=== PATIENT | female | born 1940 | race Caucasian/White ===

== ENCOUNTER 2017-08-31 21:13 | Inpatient (IN) | payer MEDICARE, MEDICAID ==
[~2017-08-31] VITALS: Ht 167.6 cm; Wt 47.2 kg
[~2017-08-31 21:13] MED LIST: ASPI-1264 PO; ATE25T PO; CLOP75TA35 PO; DIGO250T PO; LEVO50TA67 PO; LISI-222 PO; LOPE-144 PO; ONDA4TAB12 PO; SIMV20TA5 PO; temazepam 15mg capsule PO PRN
[2017-08-31] MEDS ORDERED: normal saline 1000ml 1,000 ML IV ONE (21:27)
[2017-08-31] MEDS ORDERED: pantoprazole 40 MG vial IV ONE (21:30)
[2017-08-31 21:50] LABS: BASOPHILS % (AUTO) 0.4 % (0-1); EOSINOPHILS # (AUTO) 0.2 X10'3 (0-0.9); EOSINOPHILS % (AUTO) 2.3 % (0-6); HEMATOCRIT 35.9 % (35.0-45.0); LYMPHOCYTES # (AUTO) 4.7 X10'3 (1.1-4.8); LYMPHOCYTES % (AUTO) 56.6 % (21-51); MEAN CORPUSCULAR HEMOGLOBIN 31.1 PG (27.0-31.0); MEAN CORPUSCULAR HGB CONC 33.5 % (33.0-36.5); MEAN CORPUSCULAR VOLUME 92.9 FL (78-98); MEAN PLATELET VOLUME 7.4 FL (7.4-10.4); MONOCYTES # (AUTO) 0.5 X10'3 (0-0.9); MONOCYTES % (AUTO) 6.3 % (2-12); NEUTROPHILS # (AUTO) 2.9 X10'3 (1.8-7.7); NEUTROPHILS % (AUTO) 34.4 % (42-75); PLATELET COUNT 299 X10'3 (140-440); RED BLOOD COUNT 3.87 X10'6 (4.20-5.60); RED CELL DISTRIBUTION WIDTH 13.9 % (11.5-14.5); WHITE BLOOD COUNT 8.4 X10'3 (4.5-11.0)
[2017-08-31] MEDS ORDERED: VALE530C (21:56)
[2017-08-31] MEDS ORDERED: LEVO112T5 PO (21:56)
[2017-08-31] MEDS ORDERED: FISH12002 PO (21:56)
[2017-08-31] MEDS ORDERED: DICY10CA88 PO (21:56)
[2017-08-31 22:03] LABS: PARTIAL THROMBOPLASTIN TIME 21 SECONDS (22-32); PROTHROMBIN TIME 10.4 SECONDS (9.0-12.0)
[2017-08-31 22:13] LABS: ALANINE AMINOTRANSFERASE 26 U/L (12-78); ALBUMIN 3.2 G/DL (3.4-5.0); ALBUMIN/GLOBULIN RATIO 1.1 (1.1-1.5); ALKALINE PHOSPHATASE 40 IU/L (46-116); ANION GAP 12 (8-16); ASPARTATE AMINO TRANSFERASE 21 U/L (10-37); BILIRUBIN,TOTAL 0.3 MG/DL (0.1-1.0); BLOOD UREA NITROGEN 14 MG/DL (7-18); BUN/CREATININE RATIO 19.2 (6.6-38.0); CALCIUM 7.9 MG/DL (8.5-10.1); CHLORIDE 104 MMOL/L (99-107); CREATININE 0.73 MG/DL (0.40-0.90); ETHANOL 0.038 GM/DL (0.0-0.010); GLUCOSE 96 MG/DL (70-104); LIPASE 193 U/L (73-393); SODIUM 142 MMOL/L (135-145); TOTAL CARBON DIOXIDE 26.3 MMOL/L (24-32); eGFR 77 ML/MIN
[2017-08-31] MEDS: normal saline 1000ml 1,000 ML IV SCH (23:02)
[2017-08-31] MEDS ORDERED: morphine 4 MG/ML inj SYRINge IV PRN ×2 (23:05)
[2017-08-31] MEDS ORDERED: magnesium 4gm in 100ml NS 100 ML IV PRN (23:05)
[2017-08-31] MEDS ORDERED: potassium Cl 20 mEq SR tablet PO PRN ×2 (23:05)
[2017-08-31] MEDS ORDERED: ondansetron/PF 4mg/2ml inj IV PRN (23:05)
[2017-08-31] MEDS ORDERED: magnesium hydroxide 30ml (MOM) UD suspension PO PRN (23:05)
[2017-08-31] MEDS ORDERED: mag hydrox/Alum hydrox/simeth 30ml oral suspension PO PRN (23:05)
[2017-08-31] MEDS ORDERED: magnesium Cl slow-release 64mg tablet PO PRN (23:05)
[2017-08-31] MEDS ORDERED: magnesium 2GM in 50ml NS 50 ML IV PRN (23:05)
[2017-08-31] MEDS ORDERED: albuterol 2.5 MG/3 ML nebule NEB PRN (23:05)
[2017-08-31] MEDS ORDERED: potassium Cl 40MEQ/NS 500ml 500 ML IV PRN ×2 (23:05)
[2017-08-31] MEDS ORDERED: acetaminophen 325mg tablet PO PRN (23:05)
[2017-08-31] MEDS ORDERED: ipratropium/albuterol 3ml nebule NEB PRN (23:05)
[2017-08-31 23:53] LABS: CLARITY,URINE CLEAR (Clear); COLOR,URINE STRAW (Yellow); GLUCOSE, URINE NEGATIVE (Neg); KETONES,URINE NEGATIVE (Neg); LEUKOCYTE ESTERASE ,URINE NEGATIVE (Neg); NITRITES, URINE NEGATIVE (Neg); OCCULT BLOOD,URINE LARGE (Neg); PH,URINE 5.5 (4.8-8.0); PROTEIN,URINE NEGATIVE (Neg); UROBILINOGEN,URINE 0.2 E.U/dL (0.2-1.0)
[2017-08-31 23:57] LABS: UA COLLECTION TYPE URINAL
[2017-09-01 00:56] LABS: BACTERIA,URINE 2+ /HPF (Neg); MUCUS STRANDS NONE SEEN /LPF (Neg); RBC,URINE 0-2 /HPF (0-2); SQUAMOUS EPITHELIAL CELL,UR FEW /LPF (FEW); WBC,URINE NONE SEEN /HPF (0-4)
[2017-09-01] MEDS: pantoprazole 40MG/NS 100ML BAG 100 ML IV SCH ×3 (01:22→14:38)
[2017-09-01 03:28] LABS: BASOPHILS % (AUTO) 0.4 % (0-1); EOSINOPHILS # (AUTO) 0.1 X10'3 (0-0.9); EOSINOPHILS % (AUTO) 1.1 % (0-6); HEMATOCRIT 36.7 % (35.0-45.0); HEMOGLOBIN 12.4 g/dl (12.0-16.0); LYMPHOCYTES # (AUTO) 1.9 X10'3 (1.1-4.8); LYMPHOCYTES % (AUTO) 25.1 % (21-51); MEAN CORPUSCULAR HEMOGLOBIN 31.2 PG (27.0-31.0); MEAN CORPUSCULAR HGB CONC 33.9 % (33.0-36.5); MEAN PLATELET VOLUME 7.2 FL (7.4-10.4); MONOCYTES # (AUTO) 0.4 X10'3 (0-0.9); MONOCYTES % (AUTO) 5.2 % (2-12); NEUTROPHILS # (AUTO) 5.3 X10'3 (1.8-7.7); NEUTROPHILS % (AUTO) 68.2 % (42-75); PLATELET COUNT 301 X10'3 (140-440); RED BLOOD COUNT 3.99 X10'6 (4.20-5.60); RED CELL DISTRIBUTION WIDTH 13.8 % (11.5-14.5); WHITE BLOOD COUNT 7.7 X10'3 (4.5-11.0)
[2017-09-01 03:46] LABS: ALANINE AMINOTRANSFERASE 28 U/L (12-78); ALBUMIN 3.4 G/DL (3.4-5.0); ALBUMIN/GLOBULIN RATIO 1.2 (1.1-1.5); ALKALINE PHOSPHATASE 40 IU/L (46-116); ANION GAP 9 (8-16); ASPARTATE AMINO TRANSFERASE 21 U/L (10-37); BILIRUBIN,TOTAL 0.4 MG/DL (0.1-1.0); BLOOD UREA NITROGEN 17 MG/DL (7-18); BUN/CREATININE RATIO 23.6 (6.6-38.0); CALCIUM 8.3 MG/DL (8.5-10.1); CHLORIDE 107 MMOL/L (99-107); CREATININE 0.72 MG/DL (0.40-0.90); GLUCOSE 115 MG/DL (70-104); POTASSIUM 4.7 MMOL/L (3.5-5.1); SODIUM 141 MMOL/L (135-145); TOTAL CARBON DIOXIDE 25.4 MMOL/L (24-32); TOTAL PROTEIN 6.2 G/DL (6.4-8.2); eGFR 78 ML/MIN
[2017-09-01 06:55] VITALS: BP 120/45
[2017-09-01] MEDS ORDERED: heparin sodium, porcine/PF 100unit/ml 5ML syringe ONE (07:58)
[2017-09-01] MEDS: K and/or MAG REPLACEMENT MC SCH (08:00)
[2017-09-01] MEDS: normal saline 1000ml 1,000 ML IV SCH ×2 (08:04→20:00)
[2017-09-01 11:00] VITALS: BP 124/58
[2017-09-01] MEDS ORDERED: LISI-642 PO (11:11)
[2017-09-01] MEDS ORDERED: PEG 3350/Na sulf,bicarb,Cl/KCl oral sol 4 liter bottle PO ONE (12:35)
[2017-09-01 19:30] VITALS: BP 169/75
[2017-09-01] MEDS: atenolol 50mg tablet PO SCH (19:59)
[2017-09-01] MEDS: pantoprazole 40 MG vial IV SCH (19:59)
[2017-09-02] VITALS (8 sets, daily range): BP systolic 124–162; BP diastolic 55–94
[2017-09-02 05:18] LABS: BASOPHILS % (AUTO) 0.7 % (0-1); EOSINOPHILS # (AUTO) 0.2 X10'3 (0-0.9); HEMATOCRIT 30.3 % (35.0-45.0); HEMOGLOBIN 10.3 g/dl (12.0-16.0); LYMPHOCYTES # (AUTO) 2.2 X10'3 (1.1-4.8); LYMPHOCYTES % (AUTO) 37.7 % (21-51); MEAN CORPUSCULAR HEMOGLOBIN 31.3 PG (27.0-31.0); MEAN CORPUSCULAR HGB CONC 34.1 % (33.0-36.5); MEAN CORPUSCULAR VOLUME 91.9 FL (78-98); MEAN PLATELET VOLUME 7.6 FL (7.4-10.4); MONOCYTES # (AUTO) 0.5 X10'3 (0-0.9); MONOCYTES % (AUTO) 8.4 % (2-12); NEUTROPHILS % (AUTO) 50.2 % (42-75); PLATELET COUNT 248 X10'3 (140-440); RED BLOOD COUNT 3.29 X10'6 (4.20-5.60); RED CELL DISTRIBUTION WIDTH 13.6 % (11.5-14.5); WHITE BLOOD COUNT 5.9 X10'3 (4.5-11.0)
[2017-09-02 05:37] LABS: ALANINE AMINOTRANSFERASE 19 U/L (12-78); ALBUMIN 2.7 G/DL (3.4-5.0); ALBUMIN/GLOBULIN RATIO 1.1 (1.1-1.5); ALKALINE PHOSPHATASE 31 IU/L (46-116); ANION GAP 7 (8-16); ASPARTATE AMINO TRANSFERASE 19 U/L (10-37); BILIRUBIN,TOTAL 0.5 MG/DL (0.1-1.0); BLOOD UREA NITROGEN 6 MG/DL (7-18); CALCIUM 7.7 MG/DL (8.5-10.1); CHLORIDE 114 MMOL/L (99-107); GLUCOSE 89 MG/DL (70-104); MAGNESIUM 1.7 MG/DL (1.5-2.4); POTASSIUM 3.8 MMOL/L (3.5-5.1); SODIUM 147 MMOL/L (135-145); TOTAL CARBON DIOXIDE 26.4 MMOL/L (24-32); TOTAL PROTEIN 5.1 G/DL (6.4-8.2); eGFR > 90 ML/MIN
[2017-09-02] MEDS ORDERED: fentaNYL/PF 50MCG/1 ML 2ML syringe ONE (06:37)
[2017-09-02] MEDS ORDERED: MIDAZolam 5mg/ml 2ml vial ONE (06:37)
[2017-09-02] MEDS ORDERED: levoTHYROXINE 112mcg tablet PO SCH (07:00)
[2017-09-02] MEDS: K and/or MAG REPLACEMENT MC SCH (08:00)
[2017-09-02] MEDS: pantoprazole 40 MG vial IV SCH (10:56)
[2017-09-02] MEDS: atenolol 50mg tablet PO SCH (10:56)
== END 2017-09-02 16:20 | disposition home or self-care (01) | DRG 378 ==
LOC: ER 21:13 → ED HOLD 23:02 → SUR 3N 09-01 00:56
PROVIDERS: ADMIT Internal Medicine; ATTEND Internal Medicine
PROC: CD171ZZ Planar Nuclear Medicine Imaging of Gastrointestinal Tract using Technetium 99m (Tc-99m) (ICD-10-PCS; 2017-09-01)
PROC: 0W3P8ZZ Control Bleeding in Gastrointestinal Tract, Via Natural or Artificial Opening Endoscopic (ICD-10-PCS; principal; 2017-09-02)
DX: K92.1 Melena (principal); K63.3 Ulcer of intestine; I48.2 Chronic atrial fibrillation; I50.9 Heart failure, unspecified; I11.0 Hypertensive heart disease with heart failure; R71.0 Precipitous drop in hematocrit; J44.9 Chronic obstructive pulmonary disease, unspecified; K57.90 Diverticulosis of intestine, part unspecified, without perforation or abscess without bleeding; K58.9 Irritable bowel syndrome, unspecified; F10.129 Alcohol abuse with intoxication, unspecified; E78.5 Hyperlipidemia, unspecified; E03.9 Hypothyroidism, unspecified; E78.00 Pure hypercholesterolemia, unspecified; K21.9 Gastro-esophageal reflux disease without esophagitis; Z60.2 Problems related to living alone; Z90.49 Acquired absence of other specified parts of digestive tract; Z88.6 Allergy status to analgesic agent; Z91.018 Allergy to other foods; Z79.02 Long term (current) use of antithrombotics/antiplatelets; Z79.899 Other long term (current) drug therapy; Z86.73 Personal history of transient ischemic attack (TIA), and cerebral infarction without residual deficits; Z87.891 Personal history of nicotine dependence
CPT/HCPCS: 36415; 45378; 45382; 78278; 80053; 80162; 80320; 81001; 83690; 83735; 84484; 85025; 85610; 85730; 86885; 86900; 86901; 86920; 87070; 93005; 94760; 96361; 96374; 99285; A4620; A6258; A9560; C9113; G0500; J1642; J2250; J3010; J7030

== ENCOUNTER 2021-01-08 06:29 | Emergency (ER) | payer MEDICARE, MEDICAID ==
[~2021-01-08] VITALS: Ht 175.3 cm; Wt 48.6 kg
[~2021-01-08 06:29] MED LIST changes: -ASPI-1264 PO; +CLOP75TA34 PO; -CLOP75TA35 PO; +DICY10CA88 PO; -DIGO250T PO; +FISH12002 PO; +LEVO112T5 PO; -LEVO50TA67 PO; -LISI-222 PO; +LISI-642 PO; -LOPE-144 PO; -ONDA4TAB12 PO; +SIMV-42 PO; -SIMV20TA5 PO; -temazepam 15mg capsule PO PRN
[2021-01-08 06:59] LABS: BASOPHILS # (AUTO) 0.1 X10'3 (0-0.2); BASOPHILS % (AUTO) 1.1 % (0-1); EOSINOPHILS # (AUTO) 0.2 X10'3 (0-0.9); EOSINOPHILS % (AUTO) 3.1 % (0-6); HEMATOCRIT 38.7 % (35.0-45.0); LYMPHOCYTES # (AUTO) 2.6 X10'3 (1.1-4.8); LYMPHOCYTES % (AUTO) 46.6 % (21-51); MEAN CORPUSCULAR HEMOGLOBIN 28.9 PG (27.0-31.0); MEAN CORPUSCULAR HGB CONC 33.6 g/dL (33.0-36.5); MEAN CORPUSCULAR VOLUME 86.1 FL (78-98); MEAN PLATELET VOLUME 6.7 FL (7.4-10.4); MONOCYTES # (AUTO) 0.4 X10'3 (0-0.9); MONOCYTES % (AUTO) 6.6 % (2-12); NEUTROPHILS # (AUTO) 2.3 X10'3 (1.8-7.7); NEUTROPHILS % (AUTO) 42.6 % (42-75); PLATELET COUNT 362 X10'3 (140-440); RED CELL DISTRIBUTION WIDTH 14.3 % (11.5-14.5); WHITE BLOOD COUNT 5.5 X10'3 (4.5-11.0)
[2021-01-08 07:21] LABS: ALANINE AMINOTRANSFERASE 25 U/L (12-78); ALBUMIN 3.4 G/DL (3.4-5.0); ALBUMIN/GLOBULIN RATIO 1.1 (1.1-1.5); ALKALINE PHOSPHATASE 42 IU/L (46-116); ANION GAP 8 (8-16); ASPARTATE AMINO TRANSFERASE 21 U/L (10-37); BILIRUBIN,TOTAL 0.4 MG/DL (0.1-1.0); BLOOD UREA NITROGEN 7 MG/DL (7-18); BUN/CREATININE RATIO 9.3 (6.6-38.0); CALCIUM 8.2 MG/DL (8.5-10.1); CHLORIDE 106 MMOL/L (99-107); CREATININE 0.75 MG/DL (0.40-0.90); GLUCOSE 111 MG/DL (70-104); SODIUM 142 MMOL/L (135-145); TOTAL CARBON DIOXIDE 27.6 MMOL/L (24-32); TOTAL PROTEIN 6.5 G/DL (6.4-8.2); eGFR 74 ML/MIN
[2021-01-08 07:45] LABS: CLARITY,URINE CLEAR (Clear); COLOR,URINE STRAW (Yellow); GLUCOSE, URINE NEGATIVE (Neg); KETONES,URINE NEGATIVE (Neg); LEUKOCYTE ESTERASE ,URINE NEGATIVE (Neg); NITRITES, URINE NEGATIVE (Neg); OCCULT BLOOD,URINE TRACE-INTACT (Neg); PROTEIN,URINE NEGATIVE (Neg); UROBILINOGEN,URINE 0.2 E.U/dL (0.2-1.0)
[2021-01-08 07:48] LABS: UA COLLECTION TYPE CLN CATCH MIDSTREAM
[2021-01-08 07:52] LABS: SQUAMOUS EPITHELIAL CELL,UR FEW /LPF (FEW)
[2021-01-08 07:53] LABS: BACTERIA,URINE FEW /HPF (Neg); WBC,URINE 0-4 /HPF (0-4)
--- NOTE | 2021-01-08 08:03 | NUR ---
HILARIO BARRAZA [phone]
[2021-01-08] MEDS ORDERED: normal saline 1000ML IV soln IVB ONE (08:15)
[2021-01-08] MEDS ORDERED: magnesium citrate 296ml oral solution PO ONE (08:15)
--- NOTE | 2021-01-08 08:49 | NUR ---
Patient states she had a wave of chills, feeling like she was going to "pass out", and "gassy". Son at bedside states this is how pat felt when he called 911. MD aware, will assess and speak with patient and son shortly.
[2021-01-08 09:18] VITALS: BP 173/76
== END 2021-01-08 09:20 | disposition home or self-care (01) ==
LOC: ER 06:29
DX: K59.00 Constipation, unspecified (principal); K57.30 Diverticulosis of large intestine without perforation or abscess without bleeding; R42 Dizziness and giddiness; I48.91 Unspecified atrial fibrillation; E78.00 Pure hypercholesterolemia, unspecified; I10 Essential (primary) hypertension; J44.9 Chronic obstructive pulmonary disease, unspecified; K21.9 Gastro-esophageal reflux disease without esophagitis; Z86.73 Personal history of transient ischemic attack (TIA), and cerebral infarction without residual deficits; Z90.49 Acquired absence of other specified parts of digestive tract; Z72.89 Other problems related to lifestyle; Z79.899 Other long term (current) drug therapy; Z91.018 Allergy to other foods; E27.8 Other specified disorders of adrenal gland
CPT/HCPCS: 36415; 74176; 80053; 81001; 85025; 99284; J7030

== ENCOUNTER 2021-01-17 07:20 | Inpatient (IN) | payer MEDICARE, MEDICAID ==
[~2021-01-17] VITALS: Ht 165.1 cm; Wt 48.6 kg
[2021-01-17] MEDS ORDERED: magnesium citrate 296ml oral solution PO ONE (09:50)
[2021-01-17] MEDS ORDERED: normal saline 1000ML IV soln IVB ONE (09:50)
[2021-01-17] MEDS ORDERED: famotidine/PF 10 mg/ml inj IV ONE (12:25)
[2021-01-17 12:49] LABS: BASOPHILS % (AUTO) 0.7 % (0-1); EOSINOPHILS % (AUTO) 0.3 % (0-6); HEMATOCRIT 40.5 % (35.0-45.0); HEMOGLOBIN 13.5 g/dl (12.0-16.0); LYMPHOCYTES # (AUTO) 1.3 X10'3 (1.1-4.8); LYMPHOCYTES % (AUTO) 21.5 % (21-51); MEAN CORPUSCULAR HEMOGLOBIN 29.1 PG (27.0-31.0); MEAN CORPUSCULAR HGB CONC 33.4 g/dL (33.0-36.5); MEAN CORPUSCULAR VOLUME 87.1 FL (78-98); MEAN PLATELET VOLUME 6.8 FL (7.4-10.4); MONOCYTES # (AUTO) 0.5 X10'3 (0-0.9); MONOCYTES % (AUTO) 7.5 % (2-12); NEUTROPHILS # (AUTO) 4.4 X10'3 (1.8-7.7); PLATELET COUNT 392 X10'3 (140-440); RED BLOOD COUNT 4.66 X10'6 (4.20-5.60); RED CELL DISTRIBUTION WIDTH 14.6 % (11.5-14.5); WHITE BLOOD COUNT 6.2 X10'3 (4.5-11.0)
[2021-01-17 13:01] LABS: ALANINE AMINOTRANSFERASE 21 U/L (12-78); ALBUMIN 3.7 G/DL (3.4-5.0); ALBUMIN/GLOBULIN RATIO 1.2 (1.1-1.5); ALKALINE PHOSPHATASE 47 IU/L (46-116); ANION GAP 10 (8-16); ASPARTATE AMINO TRANSFERASE 20 U/L (10-37); BILIRUBIN,TOTAL 0.4 MG/DL (0.1-1.0); BLOOD UREA NITROGEN 4 MG/DL (7-18); BUN/CREATININE RATIO 6.2 (6.6-38.0); CALCIUM 8.6 MG/DL (8.5-10.1); CHLORIDE 104 MMOL/L (99-107); CREATININE 0.65 MG/DL (0.40-0.90); GLUCOSE 101 MG/DL (70-104); POTASSIUM 4.3 MMOL/L (3.5-5.1); SODIUM 140 MMOL/L (135-145); TOTAL CARBON DIOXIDE 26.4 MMOL/L (24-32); TOTAL PROTEIN 6.8 G/DL (6.4-8.2); eGFR 87 ML/MIN
[2021-01-17 13:02] LABS: PARTIAL THROMBOPLASTIN TIME 28 SECONDS (22-32)
[2021-01-17] MEDS ORDERED: HYDROcodone/acetaminophen 10/325mg tab PO PRN (13:05)
[2021-01-17] MEDS ORDERED: potassium Cl 40MEQ/1/2NS 520ml 520 ML IV PRN ×2 (13:05)
[2021-01-17] MEDS ORDERED: magnesium 4gm in 100ml NS 100 ML IV PRN (13:05)
[2021-01-17] MEDS ORDERED: acetaminophen 325mg tablet PO PRN ×2 (13:05)
[2021-01-17] MEDS ORDERED: HYDROcodone/acetaminophen 5mg/325mg tablet PO PRN (13:05)
[2021-01-17] MEDS ORDERED: magnesium Cl slow-release 64mg tablet PO PRN (13:05)
[2021-01-17] MEDS ORDERED: potassium Cl 20 mEq SR tablet PO PRN ×2 (13:05)
[2021-01-17] MEDS ORDERED: bisacodyl 10mg suppository rectal RC PRN (13:05)
[2021-01-17] MEDS ORDERED: mag hydrox/Alum hydrox/simeth 30ml oral suspension PO PRN (13:05)
[2021-01-17] MEDS ORDERED: ondansetron/PF 4mg/2ml inj IV PRN (13:05)
[2021-01-17] MEDS ORDERED: magnesium 2GM in 50ml NS 50 ML IV PRN (13:05)
[2021-01-17] MEDS ORDERED: magnesium hydroxide 30ml (MOM) UD suspension PO PRN (13:05)
[2021-01-17] MEDS ORDERED: pantoprazole 40MG/NS 100ML BAG 100 ML IV SCH ×2 (13:16→16:00)
[2021-01-17] MEDS ORDERED: LIPA1CAP18 PO (13:29)
[2021-01-17] MEDS ORDERED: ALBU18HF2 PO (13:29)
[2021-01-17] MEDS ORDERED: DIGO250T PO (13:29)
[2021-01-17] MEDS ORDERED: GLUC100017 PO (13:29)
[2021-01-17] MEDS ORDERED: ATEN50TA8 PO (13:29)
[2021-01-17] MEDS ORDERED: MULT-1085 PO (13:29)
[2021-01-17] MEDS ORDERED: CALC-106 PO (13:29)
[2021-01-17] MEDS ORDERED: GARL1000 PO (13:29)
[2021-01-17] MEDS: normal saline 1000ml 1,000 ML IV SCH (14:28)
--- NOTE | 2021-01-17 14:35 | NUR ---
pt had 2 bm after the mg citrate.
[2021-01-17 16:47] LABS: OCCULT BLOOD STOOL POSITIVE (Neg)
[2021-01-17] MEDS ORDERED: albuterol 2.5 MG/3 ML nebule NEB PRN (17:45)
--- NOTE | 2021-01-17 17:45 | NUR ---
gi called pt will be going to gi lab tomm at 0830 am hipolito pt has to be npo after midnight.
[2021-01-17] MEDS ORDERED: LIPASE/PROTEASE/AMYLASE 4,200 unit CAPSULE.DR PO SCH (18:00)
[2021-01-17] MEDS ORDERED: LIPASE/PROTEASE/AMYLASE 16,800 UNIT CAPSULE.DR PO SCH (18:00)
[2021-01-17] MEDS: pantoprazole 40MG/NS 100ML BAG 100 ML IV SCH ×2 (18:24→23:39)
--- NOTE | 2021-01-17 18:24 | NUR ---
LIPASE NOT AVAILABLE. PHARMACY TO BRING IT WHEN AVAILABLE.
[2021-01-17] MEDS ORDERED: LIPASE/PROTEASE/AMYLASE 4,200 unit CAPSULE.DR PO ONE (19:30)
[2021-01-17] MEDS: K and/or MAG REPLACEMENT MC SCH (20:00)
[2021-01-17] MEDS ORDERED: temazepam 15mg capsule PO PRN (21:00)
[2021-01-18] MEDS: pantoprazole 40MG/NS 100ML BAG 100 ML IV SCH ×4 (01:00→16:00)
[2021-01-18] MEDS: normal saline 1000ml 1,000 ML IV SCH ×3 (03:23→15:51)
[2021-01-18] MEDS ORDERED: pantoprazole 40mg Tablet.DR PO SCH ×2 (07:30→20:00)
[2021-01-18] MEDS ORDERED: fentaNYL/PF 50MCG/1 ML 2ML syringe ONE (07:54)
[2021-01-18] MEDS ORDERED: LIDOcaine Viscous 15ml cup ONE ×2 (07:55→07:56)
[2021-01-18] MEDS ORDERED: MIDAZolam 1 MG/ML 5ML VIAL ONE (07:55)
[2021-01-18] MEDS ORDERED: levoTHYROXINE 112mcg tablet PO SCH (08:00)
[2021-01-18] MEDS ORDERED: lisinopril 5mg tablet PO SCH (08:00)
[2021-01-18] MEDS ORDERED: digoxin 125mcg (0.125mg) tablet PO SCH (08:00)
[2021-01-18] MEDS ORDERED: atenolol 25mg tablet PO SCH (08:00)
[2021-01-18] MEDS: K and/or MAG REPLACEMENT MC SCH (08:00)
[2021-01-18 08:01] LABS: HEMATOCRIT 37.9 % (35.0-45.0); HEMOGLOBIN 12.6 g/dl (12.0-16.0); MEAN CORPUSCULAR HEMOGLOBIN 28.9 PG (27.0-31.0); MEAN CORPUSCULAR HGB CONC 33.3 g/dL (33.0-36.5); MEAN CORPUSCULAR VOLUME 86.8 FL (78-98); PLATELET COUNT 356 X10'3 (140-440); RED BLOOD COUNT 4.37 X10'6 (4.20-5.60); RED CELL DISTRIBUTION WIDTH 14.3 % (11.5-14.5); WHITE BLOOD COUNT 6.8 X10'3 (4.5-11.0)
[2021-01-18 08:20] VITALS: BP 178/84
[2021-01-18 08:22] LABS: ALBUMIN 3.4 G/DL (3.4-5.0); ANION GAP 12 (8-16); BLOOD UREA NITROGEN 8 MG/DL (7-18); BUN/CREATININE RATIO 13.1 (6.6-38.0); CALCIUM 8.1 MG/DL (8.5-10.1); CHLORIDE 107 MMOL/L (99-107); CREATININE 0.61 MG/DL (0.40-0.90); GLUCOSE 95 MG/DL (70-104); MAGNESIUM 2.2 MG/DL (1.5-2.4); POTASSIUM 4.1 MMOL/L (3.5-5.1); SODIUM 146 MMOL/L (135-145); TOTAL CARBON DIOXIDE 27.5 MMOL/L (24-32); eGFR > 90 ML/MIN
[2021-01-18 08:36] VITALS: BP 152/84
[2021-01-18 08:46] VITALS: BP 121/86
[2021-01-18 08:56] VITALS: BP 138/73
[2021-01-18 09:06] VITALS: BP 137/74
[2021-01-18] MEDS: CREON 36000 UNIT PO SCH ×2 (10:25→13:00)
[2021-01-18 15:44] VITALS: BP 159/79
[2021-01-18] MEDS ORDERED: PANT-47 PO (16:12)
== END 2021-01-18 17:30 | disposition home or self-care (01) | DRG 379 ==
LOC: ER 07:21 → ED HOLD 13:05
PROVIDERS: ADMIT Family Medicine; ATTEND Family Medicine
PROC: 0DB68ZX Excision of Stomach, Via Natural or Artificial Opening Endoscopic, Diagnostic (ICD-10-PCS; principal; 2021-01-18)
DX: K25.4 Chronic or unspecified gastric ulcer with hemorrhage (principal); E78.00 Pure hypercholesterolemia, unspecified; I10 Essential (primary) hypertension; Z60.2 Problems related to living alone; I48.91 Unspecified atrial fibrillation; K21.9 Gastro-esophageal reflux disease without esophagitis; J44.9 Chronic obstructive pulmonary disease, unspecified; K29.70 Gastritis, unspecified, without bleeding; K22.8 Other specified diseases of esophagus; K44.9 Diaphragmatic hernia without obstruction or gangrene; Z86.73 Personal history of transient ischemic attack (TIA), and cerebral infarction without residual deficits; Z87.891 Personal history of nicotine dependence; Z88.6 Allergy status to analgesic agent; Z91.018 Allergy to other foods; Z79.899 Other long term (current) drug therapy; Z84.89 Family history of other specified conditions
CPT/HCPCS: 36415; 43239; 71045; 74019; 74176; 80048; 80053; 80162; 82272; 83735; 84443; 85025; 85027; 85610; 85730; 86885; 86900; 86901; 87081; 88305; 88342; 93005; 96360; 99152; 99285; A4620; C9113; G0378; J2250; J3010; J3490; J7030; J7040

== ENCOUNTER 2021-10-30 14:55 | Observation (INO) | payer MEDICARE, MEDICAID ==
[~2021-10-30] VITALS: Ht 165.1 cm; Wt 48.2 kg
[~2021-10-30 14:55] MED LIST changes: +ALBU18HF2 PO; -ATE25T PO; +ATEN50TA8 PO; +CALC-106 PO; -CLOP75TA34 PO; -DICY10CA88 PO; +DIGO250T PO; +GARL1000 PO; +GLUC100017 PO; +LIPA1CAP18 PO; +MULT-1085 PO; +PANT-47 PO; -SIMV-42 PO
[2021-10-30 15:33] LABS: BASOPHILS # (AUTO) 0.1 X10'3 (0-0.2); EOSINOPHILS # (AUTO) 0.1 X10'3 (0-0.9); EOSINOPHILS % (AUTO) 1.8 % (0-6); HEMATOCRIT 42.9 % (35.0-45.0); HEMOGLOBIN 14.1 g/dl (12.0-16.0); LYMPHOCYTES # (AUTO) 2.7 X10'3 (1.1-4.8); LYMPHOCYTES % (AUTO) 38.4 % (21-51); MEAN CORPUSCULAR HEMOGLOBIN 28.2 PG (27.0-31.0); MEAN CORPUSCULAR HGB CONC 32.9 g/dL (33.0-36.5); MEAN CORPUSCULAR VOLUME 85.6 FL (78-98); MEAN PLATELET VOLUME 7.1 FL (7.4-10.4); MONOCYTES # (AUTO) 0.6 X10'3 (0-0.9); MONOCYTES % (AUTO) 8.1 % (2-12); NEUTROPHILS # (AUTO) 3.6 X10'3 (1.8-7.7); NEUTROPHILS % (AUTO) 50.7 % (42-75); PLATELET COUNT 426 X10'3 (140-440); RED BLOOD COUNT 5.01 X10'6 (4.20-5.60); RED CELL DISTRIBUTION WIDTH 14.8 % (11.5-14.5); WHITE BLOOD COUNT 7.1 X10'3 (4.5-11.0)
[2021-10-30 15:50] LABS: ALANINE AMINOTRANSFERASE 22 U/L (12-78); ALBUMIN/GLOBULIN RATIO 1.2 (1.1-1.5); ALKALINE PHOSPHATASE 62 IU/L (46-116); ANION GAP 9 (8-16); ASPARTATE AMINO TRANSFERASE 18 U/L (10-37); BILIRUBIN,TOTAL 0.2 MG/DL (0.1-1.0); BLOOD UREA NITROGEN 11 MG/DL (7-18); BUN/CREATININE RATIO 12.8 (6.6-38.0); CALCIUM 8.8 MG/DL (8.5-10.1); CHLORIDE 103 MMOL/L (99-107); CREATININE 0.86 MG/DL (0.40-0.90); GLUCOSE 112 MG/DL (70-104); SODIUM 141 MMOL/L (135-145); TOTAL CARBON DIOXIDE 29.1 MMOL/L (24-32); TOTAL PROTEIN 7.4 G/DL (6.4-8.2); eGFR 63 ML/MIN
[2021-10-30] MEDS ORDERED: magnesium hydroxide 30ml (MOM) UD suspension PO PRN (20:55)
[2021-10-30] MEDS ORDERED: nitroGLYCERIN 0.4mg SUBLingual tab SL PRN ×2 (20:55→23:35)
[2021-10-30] MEDS ORDERED: morphine 2 MG/ML inj. syringe IV PRN ×2 (20:55)
[2021-10-30] MEDS ORDERED: acetaminophen 325mg tablet PO PRN ×2 (20:55)
[2021-10-30] MEDS ORDERED: mag hydrox/Alum hydrox/simeth 30ml oral suspension PO PRN (20:55)
[2021-10-30] MEDS ORDERED: ondansetron/PF 4mg/2ml inj IV PRN (20:55)
--- NOTE | 2021-10-30 22:30 | NUR ---
Recieved patient from fast track. Patient placed on monitor, put in hospital gown, and provided two warm blankets. Patient denies chest pain currently, only c/o discomfort with excertion. No needs at this time. No signs of distress.
[2021-10-30] MEDS ORDERED: metoprolol tartrate 1mg/ml inj IV PRN (23:35)
[2021-10-30] MEDS ORDERED: FAMO40TA86 PO (23:46)
[2021-10-30] MEDS ORDERED: DIGO250T2 PO (23:46)
[2021-10-31] VITALS (12 sets, daily range): BP systolic 130–186; BP diastolic 67–99
[2021-10-31 01:22] LABS: BASOPHILS # (AUTO) 0.1 X10'3 (0-0.2); BASOPHILS % (AUTO) 1.1 % (0-1); EOSINOPHILS # (AUTO) 0.1 X10'3 (0-0.9); EOSINOPHILS % (AUTO) 2.3 % (0-6); HEMATOCRIT 37.4 % (35.0-45.0); HEMOGLOBIN 12.5 g/dl (12.0-16.0); LYMPHOCYTES # (AUTO) 2.3 X10'3 (1.1-4.8); LYMPHOCYTES % (AUTO) 35.9 % (21-51); MEAN CORPUSCULAR HEMOGLOBIN 28.3 PG (27.0-31.0); MEAN CORPUSCULAR HGB CONC 33.4 g/dL (33.0-36.5); MEAN CORPUSCULAR VOLUME 84.8 FL (78-98); MEAN PLATELET VOLUME 6.8 FL (7.4-10.4); MONOCYTES # (AUTO) 0.6 X10'3 (0-0.9); MONOCYTES % (AUTO) 9.6 % (2-12); NEUTROPHILS # (AUTO) 3.3 X10'3 (1.8-7.7); NEUTROPHILS % (AUTO) 51.1 % (42-75); PLATELET COUNT 374 X10'3 (140-440); RED BLOOD COUNT 4.41 X10'6 (4.20-5.60); RED CELL DISTRIBUTION WIDTH 14.4 % (11.5-14.5); WHITE BLOOD COUNT 6.5 X10'3 (4.5-11.0)
[2021-10-31 01:38] LABS: ALBUMIN 3.4 G/DL (3.4-5.0); ANION GAP 6 (8-16); BLOOD UREA NITROGEN 9 MG/DL (7-18); BUN/CREATININE RATIO 11.7 (6.6-38.0); CALCIUM 8.5 MG/DL (8.5-10.1); CHLORIDE 107 MMOL/L (99-107); CHOL/HDL RATIO 2.2 (0.00-4.99); CHOLESTEROL 281 MG/DL (0-200); CREATININE 0.77 MG/DL (0.40-0.90); GLUCOSE 108 MG/DL (70-104); HDL CHOLESTEROL 126 MG/DL (35-60); LDL CHOLESTEROL 118 MG/DL (50-100); POTASSIUM 3.7 MMOL/L (3.5-5.1); SODIUM 143 MMOL/L (135-145); TOTAL CARBON DIOXIDE 29.7 MMOL/L (24-32); TRIGLYCERIDES 47 MG/DL (20-135); eGFR 72 ML/MIN
--- NOTE | 2021-10-31 06:18 | NUR ---
Report from DARINEL Morales
[2021-10-31] MEDS ORDERED: aminophylline 500mg/20ml vial IV ONE (08:00)
[2021-10-31] MEDS ORDERED: docusate sod 100mg capsule PO SCH (08:00)
[2021-10-31] MEDS ORDERED: regadenoson 0.4mg/5ml syringe IV PRN (08:00)
[2021-10-31] MEDS ORDERED: regadenoson 0.4mg/5ml syringe IV ONE (10:50)
[2021-10-31] MEDS ORDERED: LIPA1CAP18 PO (15:03)
[2021-10-31] MEDS ORDERED: PANT-47 PO (15:17)
--- NOTE | 2021-11-06 14:37 | NUR ---
Case Management DC follow up: Spoke with Patient via telephone. s/p: Patient Reports: Denies chest pain ,sob,and,or nausea.Verbalizes understanding of new Rx:, why prescribed;continues/ resumes current Rx as ordered.Verbalizes understanding of s/s that warrant 911/ER visit for further evaluation.Verbalizes follow up appointment with PCP, Dr Coronado, has been scheduled, and will ask for referral for value analyst and GI specialist at that time. Verbalizes hospital stay was fine and everyone was nice.Needs met, questions/concerns addressed at DC;No further questions/concerns with recent hospital stay and / or DC status at this time.
== END 2021-10-31 16:05 | disposition home or self-care (01) ==
LOC: ER 14:57 → ED HOLD 20:59 → PCU 3S 10-31 07:05
PROVIDERS: ADMIT Internal Medicine; ATTEND Internal Medicine
DX: R07.89 Other chest pain (principal); R06.02 Shortness of breath; J44.9 Chronic obstructive pulmonary disease, unspecified; E03.9 Hypothyroidism, unspecified; K86.1 Other chronic pancreatitis; E78.00 Pure hypercholesterolemia, unspecified; I48.0 Paroxysmal atrial fibrillation; I10 Essential (primary) hypertension; K21.9 Gastro-esophageal reflux disease without esophagitis; R91.1 Solitary pulmonary nodule; Z87.891 Personal history of nicotine dependence; Z90.49 Acquired absence of other specified parts of digestive tract; Z86.73 Personal history of transient ischemic attack (TIA), and cerebral infarction without residual deficits; Z79.899 Other long term (current) drug therapy
CPT/HCPCS: 36415; 71045; 78452; 80048; 80053; 80061; 84484; 85025; 93005; 93017; 96374; 99285; A9500; G0378; J0280; J2785; 83880

== ENCOUNTER 2024-09-17 11:40 | Inpatient (IN) | payer MEDICARE, MEDICAID ==
[~2024-09-17] VITALS: Ht 165.1 cm; Wt 60.0 kg
[~2024-09-17 11:40] MED LIST changes: -ALBU18HF2 PO; -DIGO250T PO; +DIGO250T2 PO; -GARL1000 PO; -GLUC100017 PO
[2024-09-17 13:30] LABS: ALANINE AMINOTRANSFERASE 25 U/L (12-78); ALBUMIN 3.6 G/DL (3.4-5.0); ALKALINE PHOSPHATASE 61 IU/L (46-116); ANION GAP 5 (8-16); ASPARTATE AMINO TRANSFERASE 19 U/L (10-37); BILIRUBIN,TOTAL 0.3 MG/DL (0.1-1.0); BLOOD UREA NITROGEN 9 MG/DL (7-18); BUN/CREATININE RATIO 12.7 (10.0-20.0); CALCIUM 8.7 MG/DL (8.5-10.1); CHLORIDE 105 MMOL/L (99-107); CREATININE 0.71 MG/DL (0.40-0.90); GLUCOSE 105 MG/DL (70-104); POTASSIUM 4.5 MMOL/L (3.5-5.1); SODIUM 140 MMOL/L (135-145); TOTAL CARBON DIOXIDE 30.3 MMOL/L (24-32); TOTAL PROTEIN 7.2 G/DL (6.4-8.2); eCRCL 51 ML/MIN; eGFR 78 ML/MIN
[2024-09-17 13:35] LABS: BASOPHILS # (AUTO) 0.1 X10'3 (0-0.2); EOSINOPHILS # (AUTO) 0.1 X10'3 (0-0.9); EOSINOPHILS % (AUTO) 0.8 % (0-6); HEMATOCRIT 44.1 % (35.0-45.0); HEMOGLOBIN 14.4 g/dl (12.0-16.0); LYMPHOCYTES # (AUTO) 1.2 X10'3 (1.1-4.8); LYMPHOCYTES % (AUTO) 17.8 % (21-51); MEAN CORPUSCULAR HEMOGLOBIN 28.4 PG (27.0-31.0); MEAN CORPUSCULAR HGB CONC 32.6 g/dL (33.0-36.5); MEAN CORPUSCULAR VOLUME 87.2 FL (78-98); MEAN PLATELET VOLUME 7.7 FL (7.4-10.4); MONOCYTES # (AUTO) 0.5 X10'3 (0-0.9); MONOCYTES % (AUTO) 7.2 % (2-12); NEUTROPHILS # (AUTO) 4.9 X10'3 (1.8-7.7); NEUTROPHILS % (AUTO) 73.2 % (42-75); PLATELET COUNT 406 X10'3 (140-440); RED BLOOD COUNT 5.06 X10'6 (4.20-5.60); RED CELL DISTRIBUTION WIDTH 14.7 % (11.5-14.5); WHITE BLOOD COUNT 6.8 X10'3 (4.5-11.0)
[2024-09-17 13:38] LABS: PRO BRAIN NATRIURETIC PEPTIDE 176 PG/ML (0-450)
[2024-09-17 14:46] LABS: BILIRUBIN,URINE NEGATIVE (Neg); CLARITY,URINE CLEAR (Clear); COLOR,URINE STRAW (Yellow); GLUCOSE, URINE NEGATIVE (Neg); KETONES,URINE NEGATIVE (Neg); LEUKOCYTE ESTERASE ,URINE NEGATIVE (Neg); NITRITES, URINE NEGATIVE (Neg); OCCULT BLOOD,URINE SMALL (Neg); PROTEIN,URINE NEGATIVE (Neg); UROBILINOGEN,URINE 0.2 E.U/dL (0.2-1.0)
[2024-09-17 14:48] LABS: UA COLLECTION TYPE VOIDED
[2024-09-17] MEDS: lisinopril 10 MG tablet PO ONE (14:49)
[2024-09-17 15:02] LABS: BACTERIA,URINE NONE SEEN /HPF (Neg); MUCUS STRANDS NONE SEEN /LPF (Neg); SQUAMOUS EPITHELIAL CELL,UR NONE SEEN /LPF (FEW); WBC,URINE 0-4 /HPF (0-4)
[2024-09-17] MEDS: ipratropium 0.5 MG/2.5ML nebule IH ONE (15:17)
[2024-09-17 15:18] VITALS: PULSE 76; RESP 14; O2SAT 97
[2024-09-17] MEDS: albuterol 2.5 MG/3 ML nebule NEB ONE (15:23)
[2024-09-17 15:31] VITALS: PULSE 88; RESP 14; O2SAT 97
[2024-09-17] MEDS ORDERED: LEVO125T8 PO (17:08)
[2024-09-17] MEDS ORDERED: magnesium sulf-water 4G/100mL 100 ML IV PRN (18:45)
[2024-09-17] MEDS ORDERED: acetaminophen 325mg tablet PO PRN ×2 (18:45)
[2024-09-17] MEDS ORDERED: PERFLUTREN PROTEIN-A MICROSPHR (Optison) 0.22 MG/ML 3ML VIAL IV ONE (18:45)
[2024-09-17] MEDS ORDERED: mag hydrox/Alum hydrox/simeth 30ml oral suspension PO PRN (18:45)
[2024-09-17] MEDS ORDERED: magnesium Cl slow-release 64mg tablet PO PRN (18:45)
[2024-09-17] MEDS ORDERED: magnesium hydroxide 30ml (MOM) UD suspension PO PRN (18:45)
[2024-09-17] MEDS ORDERED: magnesium sulf-water 2g/50mL 50 ML IV PRN (18:45)
[2024-09-17] MEDS ORDERED: potassium Cl 20 mEq SR tablet PO PRN (18:45)
[2024-09-17] MEDS ORDERED: ondansetron/PF 4mg/2ml inj IV PRN (18:45)
[2024-09-17] MEDS ORDERED: potassium Cl 40MEQ/1/2NS 520ml 520 ML IV PRN (18:45)
[2024-09-17 18:59] VITALS: BP_SYST 154; BP_SYST 179; BP_DIAS 76; BP_DIAS 87; PULSE 90; RESP 22; TEMP 97.8; O2SAT 94
[2024-09-17] MEDS ORDERED: ipratropium/albuterol 3ml nebule NEB PRN (19:40)
[2024-09-17] MEDS: K and/or MAG REPLACEMENT MC SCH (20:00)
[2024-09-17] MEDS ORDERED: LIPASE/PROTEASE/AMYLASE 10,500 units CAPSULE.DR PO SCH (20:05)
[2024-09-17 20:20] LABS: INR 1.1 INR; PROTHROMBIN TIME 11.2 SECONDS (9.0-12.0)
[2024-09-17 20:48] LABS: THYROID STIMULATING HORMONE 0.81 ulU/ml (0.34-4.50)
[2024-09-17 20:51] LABS: DIGOXIN < 0.2 NG/ML (0.9-1.9)
[2024-09-17] MEDS: pantoprazole 40mg Tablet.DR PO SCH (20:57)
[2024-09-17] MEDS: atenolol 25mg tablet PO ONE (20:58)
[2024-09-17 22:00] VITALS: BP 127/65; PULSE 70; RESP 16; TEMP 98.1; O2SAT 96
[2024-09-17 23:20] VITALS: PULSE 73; RESP 18; O2SAT 97
[2024-09-17] MEDS: ipratropium/albuterol 3ml nebule NEB SCH (23:20)
[2024-09-17 23:28] VITALS: PULSE 83; RESP 16
[2024-09-18] VITALS (16 sets, daily range): BP systolic 110–143; BP diastolic 57–75; PULSE 69–95; RESP 15–20; TEMP 97.2–97.8; O2SAT 94–99
[2024-09-18 05:33] LABS: BASOPHILS # (AUTO) 0.1 X10'3 (0-0.2); BASOPHILS % (AUTO) 0.7 % (0-1); EOSINOPHILS # (AUTO) 0.2 X10'3 (0-0.9); EOSINOPHILS % (AUTO) 2.7 % (0-6); HEMATOCRIT 38.3 % (35.0-45.0); HEMOGLOBIN 12.8 g/dl (12.0-16.0); LYMPHOCYTES # (AUTO) 2.8 X10'3 (1.1-4.8); LYMPHOCYTES % (AUTO) 39.6 % (21-51); MEAN CORPUSCULAR HEMOGLOBIN 28.9 PG (27.0-31.0); MEAN CORPUSCULAR HGB CONC 33.4 g/dL (33.0-36.5); MEAN CORPUSCULAR VOLUME 86.6 FL (78-98); MEAN PLATELET VOLUME 7.2 FL (7.4-10.4); MONOCYTES # (AUTO) 0.6 X10'3 (0-0.9); MONOCYTES % (AUTO) 8.6 % (2-12); NEUTROPHILS # (AUTO) 3.5 X10'3 (1.8-7.7); NEUTROPHILS % (AUTO) 48.4 % (42-75); PLATELET COUNT 340 X10'3 (140-440); RED BLOOD COUNT 4.43 X10'6 (4.20-5.60); RED CELL DISTRIBUTION WIDTH 14.7 % (11.5-14.5); WHITE BLOOD COUNT 7.2 X10'3 (4.5-11.0)
[2024-09-18 06:02] LABS: ALANINE AMINOTRANSFERASE 24 U/L (12-78); ALBUMIN 3.2 G/DL (3.4-5.0); ALBUMIN/GLOBULIN RATIO 1.1 (1.1-1.5); ALKALINE PHOSPHATASE 49 IU/L (46-116); ANION GAP 9 (8-16); ASPARTATE AMINO TRANSFERASE 18 U/L (10-37); BILIRUBIN,TOTAL 0.4 MG/DL (0.1-1.0); BLOOD UREA NITROGEN 10 MG/DL (7-18); BUN/CREATININE RATIO 15.2 (10.0-20.0); CALCIUM 8.4 MG/DL (8.5-10.1); CHLORIDE 106 MMOL/L (99-107); CHOL/HDL RATIO 2.2 (0.00-4.99); CHOLESTEROL 224 MG/DL (0-200); CREATININE 0.66 MG/DL (0.40-0.90); GLUCOSE 90 MG/DL (70-104); HDL CHOLESTEROL 101 MG/DL (35-60); LDL CHOLESTEROL 96 MG/DL (50-100); MAGNESIUM 1.9 MG/DL (1.5-2.4); POTASSIUM 3.3 MMOL/L (3.5-5.1); SODIUM 142 MMOL/L (135-145); TOTAL CARBON DIOXIDE 27.3 MMOL/L (24-32); TOTAL PROTEIN 6.2 G/DL (6.4-8.2); TRIGLYCERIDES 77 MG/DL (20-135); eCRCL 55 ML/MIN; eGFR 85 ML/MIN
[2024-09-18] MEDS ORDERED: LIPASE/PROTEASE/AMYLASE 10,500 units CAPSULE.DR PO SCH (07:30)
[2024-09-18] MEDS ORDERED: atenolol 50mg tablet PO SCH (08:00)
[2024-09-18] MEDS: levoTHYROXINE 125mcg tablet PO SCH (09:35)
[2024-09-18] MEDS: atenolol 25mg tablet PO SCH (09:35)
[2024-09-18] MEDS: enoxaparin 40mg/0.4ml syringe SUBCUT SCH (09:37)
[2024-09-18] MEDS: lisinopril 5mg tablet PO SCH (09:38)
[2024-09-18] MEDS: potassium Cl 20 mEq SR tablet PO PRN (09:38)
[2024-09-18 10:29] LABS: OCCULT BLOOD STOOL NEGATIVE (Neg)
[2024-09-18] MEDS ORDERED: metoprolol tartrate 1mg/ml inj IV PRN (12:15)
[2024-09-18] MEDS ORDERED: nitroGLYCERIN 0.4mg SUBLingual tab SL PRN (12:15)
[2024-09-18] MEDS ORDERED: aminophylline 250mg/10ml inj. IV PRN (12:15)
[2024-09-19] VITALS (16 sets, daily range): BP systolic 119–167; BP diastolic 64–96; PULSE 80–134; RESP 16–20; TEMP 98.7; O2SAT 96–98
[2024-09-19] MEDS ORDERED: aminophylline 500mg/20ml vial IV PRN (04:39)
[2024-09-19 05:36] LABS: BASOPHILS # (AUTO) 0.1 X10'3 (0-0.2); BASOPHILS % (AUTO) 0.7 % (0-1); EOSINOPHILS # (AUTO) 0.2 X10'3 (0-0.9); EOSINOPHILS % (AUTO) 2.3 % (0-6); HEMATOCRIT 37.9 % (35.0-45.0); HEMOGLOBIN 12.7 g/dl (12.0-16.0); LYMPHOCYTES # (AUTO) 2.3 X10'3 (1.1-4.8); LYMPHOCYTES % (AUTO) 30.7 % (21-51); MEAN CORPUSCULAR HEMOGLOBIN 29.1 PG (27.0-31.0); MEAN CORPUSCULAR HGB CONC 33.4 g/dL (33.0-36.5); MEAN PLATELET VOLUME 7.3 FL (7.4-10.4); MONOCYTES # (AUTO) 0.7 X10'3 (0-0.9); MONOCYTES % (AUTO) 9.4 % (2-12); NEUTROPHILS # (AUTO) 4.2 X10'3 (1.8-7.7); NEUTROPHILS % (AUTO) 56.9 % (42-75); PLATELET COUNT 306 X10'3 (140-440); RED BLOOD COUNT 4.36 X10'6 (4.20-5.60); RED CELL DISTRIBUTION WIDTH 14.9 % (11.5-14.5); WHITE BLOOD COUNT 7.4 X10'3 (4.5-11.0)
[2024-09-19 05:56] LABS: ALANINE AMINOTRANSFERASE 19 U/L (12-78); ALBUMIN 2.9 G/DL (3.4-5.0); ALKALINE PHOSPHATASE 46 IU/L (46-116); ANION GAP 5 (8-16); ASPARTATE AMINO TRANSFERASE 17 U/L (10-37); BILIRUBIN,TOTAL 0.4 MG/DL (0.1-1.0); BLOOD UREA NITROGEN 11 MG/DL (7-18); BUN/CREATININE RATIO 17.7 (10.0-20.0); CALCIUM 8.3 MG/DL (8.5-10.1); CHLORIDE 108 MMOL/L (99-107); CREATININE 0.62 MG/DL (0.40-0.90); GLUCOSE 103 MG/DL (70-104); POTASSIUM 3.9 MMOL/L (3.5-5.1); SODIUM 142 MMOL/L (135-145); TOTAL CARBON DIOXIDE 29.4 MMOL/L (24-32); TOTAL PROTEIN 5.9 G/DL (6.4-8.2); eCRCL 59 ML/MIN; eGFR > 90 ML/MIN
[2024-09-19] MEDS: regadenoson 0.4mg/5ml syringe IV PRN (09:23)
[2024-09-19] MEDS ORDERED: ALBU18HF2 IH (12:20)
[2024-09-19] MEDS ORDERED: BUDE10.22 INH (12:20)
[2024-09-19] MEDS ORDERED: LISI10TA27 PO (12:20)
== END 2024-09-19 14:20 | disposition home or self-care (01) | DRG 384 ==
LOC: ER 11:41 → ED HOLD 17:17 → ORTHO 4S 18:43
PROVIDERS: ADMIT Family Medicine; ATTEND Family Medicine
PROC: 4A02XM4 Measurement of Cardiac Total Activity, External Approach (ICD-10-PCS; principal; 2024-09-19)
PROC: 3E033HZ Introduction of Radioactive Substance into Peripheral Vein, Percutaneous Approach (ICD-10-PCS; 2024-09-19)
DX: K25.9 Gastric ulcer, unspecified as acute or chronic, without hemorrhage or perforation (principal); J44.9 Chronic obstructive pulmonary disease, unspecified; I10 Essential (primary) hypertension; E78.00 Pure hypercholesterolemia, unspecified; Z66 Do not resuscitate; I48.91 Unspecified atrial fibrillation; E07.89 Other specified disorders of thyroid; K21.9 Gastro-esophageal reflux disease without esophagitis; E03.9 Hypothyroidism, unspecified; Z88.6 Allergy status to analgesic agent; Z90.49 Acquired absence of other specified parts of digestive tract; Z91.014 Allergy to mammalian meats; Z88.8 Allergy status to other drugs, medicaments and biological substances; Z91.018 Allergy to other foods; Z79.899 Other long term (current) drug therapy; Z86.73 Personal history of transient ischemic attack (TIA), and cerebral infarction without residual deficits
CPT/HCPCS: 36415; 70450; 71045; 76700; 78452; 80053; 80061; 80162; 81001; 82272; 83036; 83605; 83735; 83880; 84145; 84443; 84484; 85025; 85610; 87081; 93005; 93017; 93306; 94640; 94760; 99285; A9500; G0378; J1650; J2785

== ENCOUNTER 2025-06-02 07:26 | Inpatient (IN) | payer MEDICARE, MEDICAID ==
[~2025-06-02] VITALS: Ht 165.1 cm; Wt 50.0 kg
[~2025-06-02 07:26] MED LIST changes: +ALBU18HF2 IH; +AMIO200T76 PO; +APIX2.5T PO; +BUDE10.22 INH; +BUDE10.3; -CALC-106 PO; -DIGO250T2 PO; +LEVO100T9 PO; -LEVO112T5 PO; -LISI-642 PO; +LISI10TA27 PO; +PRED20TA PO; +TIOT18CA3 INH
[2025-06-02 08:21] LABS: MEAN PLATELET VOLUME 7.1 FL (7.4-10.4); RED CELL DISTRIBUTION WIDTH 14.9 % (11.5-14.5)
[2025-06-02 08:35] LABS: CREATININE 0.80 MG/DL (0.40-0.90); TOTAL CARBON DIOXIDE 29.9 MMOL/L (24-32); eCRCL 39 ML/MIN; eGFR 68 ML/MIN
--- NOTE | 2025-06-02 08:47 | RADIOLOGY REPORT ---
CHEST RADIOGRAPH INDICATION: SOB TECHNIQUE: Single frontal view of the chest was obtained COMPARISON: DI CHEST,SINGLE VIEW on DOS: 11/22/24. FINDINGS: Lines and Tubes: None Lungs: No focal consolidation. Pleura: No effusion. No pneumothorax. Cardiomediastinal contours: Unremarkable Bones: No acute osseous abnormality. IMPRESSION: 1. No acute cardiopulmonary disease.
[2025-06-02 09:11] LABS: LEUKOCYTE ESTERASE ,URINE NEGATIVE (Neg); NITRITES, URINE NEGATIVE (Neg); OCCULT BLOOD,URINE TRACE-INTACT (Neg)
[2025-06-02 09:14] LABS: UA COLLECTION TYPE CLN CATCH MIDSTREAM
[2025-06-02 09:17] LABS: PRO BRAIN NATRIURETIC PEPTIDE 207 PG/ML (0-450)
[2025-06-02 09:18] LABS: MUCUS STRANDS NONE SEEN /LPF (Neg); SQUAMOUS EPITHELIAL CELL,UR NONE SEEN /LPF (FEW)
--- NOTE | 2025-06-02 09:53 | ELECTROCARDIOGRAPH REPORT ---
[facility] Test Date: 2025-06-02 Test Time: 07:46:31 Pat Name: OMAYRA TANG Department: EMERGENCY ROOM Room: ORTHO 4010 Gender: F Licensed Retail Supervisor: : 1940 Requested By: KEMAR COOK Order Number: [id number] Reading MD: Dr. ODILON De Anda Measurements Intervals [place] Rate: 72 P: 81 TX: 144 QRS: 96 QRSD: 95 T: 58 QT: 438 QTc: 480 Interpretive Statements Sinus rhythm Atrial premature complex Right axis deviation Low voltage, extremity and precordial leads Borderline prolonged QT interval Baseline wander in lead(s) V6 Electronically Signed On 06-03-2025 18:10:[address] ODILON De Anda Please click the below link to view image of tracing.
[2025-06-02] MEDS ORDERED: iohexol 300mg/ml 100ml inj. ONE (11:55)
--- NOTE | 2025-06-02 12:09 | ELECTROCARDIOGRAPH REPORT ---
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 ODILON De Anda Measurements Intervals [place] Rate: 75 P: 94 [place]: 153 QRS: 95 QRSD: 79 T: 73 QT: 429 QTc: 480 Interpretive Statements Sinus rhythm Atrial premature complex Low voltage, extremity and precordial leads Probable anteroseptal infarct, old Baseline wander in lead(s) II,III,aVF Electronically Signed On 06-03-2025 18:10:[address] ODILON De Anda Please click the below link to view image of tracing.
--- NOTE | 2025-06-02 12:36 | RADIOLOGY REPORT ---
EXAM: CT CT ABDOMEN PELVIS W/ IV CONTRAST History: Abdominal pain, weakness. Comparison Study: CT ABDOMEN PELVIS on DOS: 01/17/21 TECHNIQUE: Multidetector spiral CT of the abdomen was performed from lung bases to pubic symphysis. Axial imaging was performed with intravenous contrast following the uneventful administration of 100 ml Omnipaque 300. Coronal and sagittal multiplanar reformats were obtained from the axial data set by the technologist. Radiation Dose : 1. Abdomen/Pelvis: CTDIvol 9.3 mGy, DLP 369.6 mGy*cm. FINDINGS: Lung Bases: Moderate centrilobular emphysema. Visualized portions of the heart and pericardium are unremarkable. Liver: The liver is normal in size. No focal lesions. Gallbladder and Biliary Tree: The gallbladder is unremarkable. No intrahepatic or extrahepatic biliary ductal dilatation. Spleen: Unremarkable Pancreas: The pancreas enhances normally and there are no focal lesions. Dilated main pancreatic duct at the level of the pancreatic head measuring 7 mm. Adrenal Glands: Unremarkable Kidneys: Kidneys enhance symmetrically. No calculi or hydronephrosis. GI tract: The stomach is grossly normal in appearance. No evidence of small bowel wall thickening or abnormal dilatation to suggest bowel obstruction. Colonic diverticulosis without acute diverticulitis. The appendix is not visualized, however no inflammatory changes in the right lower quadrant to sug gest acute appendicitis. Peritoneum/mesentery/retroperitoneum. No evidence of free intraperitoneal air. No ascites. No evidence of suspicious lymphadenopathy. Abdominal Wall: Unremarkable. Vasculature: Abdominal aorta and main branches are unremarkable. Normal vascular enhancement. Atherosclerotic calcifications in the abdominal aorta in the superior mesenteric artery Urinary Bladder: Grossly unremarkable for degree of distention. Pelvic Organs: Subcentimeter enhancing mass in the uterus. Musculoskeletal: No aggressive focal bony lesions, acute fractures or dislocation. IMPRESSION: 1. No acute abdominal or pelvic findings. 2. Colonic diverticulosis without acute diverticulitis. 3. Dilated main pancreatic duct at the level of the pancreatic head measuring 7 mm. MRI and MRCP recommended for further evaluation to exclude an obstructing lesion. 4. Subcentimeter enhancing mass in the uterus, likely a fibroid.
--- NOTE | 2025-06-02 17:40 | Physician Documentation ---
History of Present Illness ~ Chief Complaint: Shortness of Breath Stated Complaint: SHORT OF BREATH Time Seen by MD: 07:33 Primary Medical Doctor: DEYA SPANGLER Mode of Arrival: EMS HPI This is an 85-year-old female with past medical history of COPD, AFib, hypertension, hypothyroidism, gastric ulcer presents to the ED with complaints of shortness of breath since this morning. Patient reports that she woke up from her sleep, tried walking from her bed to the restroom, which she could not due to feeling short of breath. Patient normally uses inhalers at home, does not use oxygen. Patient reports that she had multiple hospital visits in the past due to similar complaints. However she denies any other complaints of cough, fevers, chills, chest pain, palpitations, abdominal pain, diarrhea, nausea, vomiting. Medication Reconciliation Allergies: Coded Allergies: Beef Containing Products (Verified Adverse Reaction, Intermediate, EATING BEEF, PORK OR [place] CAUSES ARTHRITIS FLARE UP, 06/02/25) Milk Containing Products (Dairy) (Verified Adverse Reaction, Intermediate, abd pain, 06/02/25) Pork/Porcine Containing Products (Verified Adverse Reaction, Intermediate, EATING BEEF, PORK OR [place] CAUSES ARTHRITIS FLARE UP, 06/02/25) aspirin (Verified Adverse Reaction, Intermediate, DIARRHEA AND HEARTBURN, 06/02/25) sheep derived (ovine) (Verified Adverse Reaction, Intermediate, EATING BEEF, PORK OR [place] CAUSES ARTHRITIS FLARE UP, 06/02/25) Scheduled Albuterol Sulfate (Ventolin Hfa), 2 PUFFS IH 5XD Amiodarone Hcl (Cordarone), 200 MG PO DAILY Atenolol (Atenolol), 0.5 TAB PO DAILY, (Reported) Atorvastatin Calcium (Atorvastatin Calcium), 40 MG PO DAILY Budesonide/Formoterol Fumarate (Symbicort 80-4.5 Mcg Inhaler), 2 PUFFS INH Q12H Cefdinir* (Cefdinir*), 1 CAP PO Q12H Fish Oil/Borage/Flax/Om3,6,9#1 ([place] 3-6-9 1,200 mg Softgel), 1 CAP PO DAILY, (Reported) Lisinopril (Lisinopril), 10 MG PO DAILY Multivitamin (Multi Vitamin Daily), 1 TAB PO DAILY, (Reported) Pantoprazole Sodium (PROTONIX tablet), 40 MG PO DAILY Prednisone (Prednisone), 0 PO DAILY Discontinued Medications Apixaban (Eliquis), 2.5 MG PO BID Discontinued Reason: completed med therapy Budesonide/Formoterol Fumarate ([place] 80-4.5 Mcg Inhaler), (Reported) Discontinued Reason: completed med therapy Levothyroxine Sodium (Levothyroxine Sodium), 100 MCG PO DAILY@07 Lipase/Protease/Amylase (Creon Dr 36,000 Units Capsule), 2 CAP PO BIDWM, (Reported) Discontinued Reason: completed med therapy Pantoprazole Sodium (PROTONIX tablet), 1 TAB PO BID Discontinued Reason: completed med therapy Prednisone* (Prednisone*), 1 TAB PO DAILY Discontinued Reason: completed med therapy Tiotropium [place] (Spiriva), 1 CAP INH DAILY, (Reported) Discontinued Reason: completed med therapy Past Medical History Past Medical History: CVA/TIA/Stroke, Atrial Fibrillation, High Cholesterol, Hypertension, COPD, GERD, GI Bleed, Thyroid (unspecified) Past Surgical History: appendectomy, tonsillectomy Patient History: FH: tuberculosis MOTHER Smoking Status: Former smoker Alcohol Use: Occasionally Drug Use: none Lives with: Family, Other Lives In: Home Occupation: retired Review of Systems All Other Systems at this time: Reviewed and Negative Physical Exam Vital Signs: RN Vital Signs have been reviewed: Yes, Temperature: 97.3, Source: Oral, Heart Rate: 93, Respiratory Rate: 20, BP: 166/89, Pulse Oximetry: 95, Weight: 50.000 Oxygen Flow Rate: 0 Physical Exam Elderly female, alert and oriented, not in acute distress. Head: Normocephalic with an atraumatic Eyes: Pupils- 3mm, reacting to light, conjunctiva- anicteric Nose and throat: No polyps, septum- normal, no mucosal ulcers Neck: Supple, no lymphadenopathy, no carotid bruit Respiratory: No use of accessory muscles of respiration. Mild wheezing present Cardiac: S1-S2 heard, rhythm regular Abdomen: non distended, no tenderness, no organomegaly, bowel sounds - heard Extremities: no clubbing, no pedal edema, no deformities, peripheral pulses - 2+ Skin: warm and dry, no rash, no purpura Neuro: No focal deficit, gross cranial nerve exam - normal Progress Results/Orders Results/Orders Orders - KEMAR COOK MD Chest,Single View (06/02/25 08:05) Electrocardiogram (06/02/25 07:46) Ct Abdomen Pelvis (06/02/25 11:11) Electrocardiogram (06/02/25 10:01) Page Hospitalist (06/02/25 13:18) MRCP (06/04/25 ) Completed Orders - KEMAR COOK MD Cbc/Diff (06/02/25 08:05) CMP (06/02/25 08:05) Chest,Single View (06/02/25 08:05) PBNP (06/02/25 08:12) Ua W/Microscopic, Cult If Ind (06/02/25 08:47) Electrocardiogram (06/02/25 07:46) Regular Diet (06/02/25 Lunch) Ct Abdomen Pelvis (06/02/25 11:11) Iohexol 300mg/Ml 100ml Inj. (Omnipaque-3 (06/02/25 11:55) Electrocardiogram (06/02/25 10:01) Lipase (06/02/25 08:12) Acetaminophen 325mg Tablet (Tylenol Tabl (06/02/25 17:05) Hgb A1c (06/02/25 08:12) Vital Signs 06/02/25 06/02/25 06/02/25 06/02/25 07:30 07:54 07:58 08:03 Temp 97.7 97.7 Pulse 94 80 Resp 19 14 16 B/P (MAP) 190/86 171/86 (114) Pulse Ox 98 99 98 O2 Delivery Nasal Cannula* O2 Flow Rate 2 1.0 FiO2 28 06/02/25 06/02/25 06/02/25 06/02/25 08:52 10:00 12:18 13:59 Temp 97.6 Pulse 82 73 83 93 Resp 18 19 18 20 B/P (MAP) 129/75 (93) 153/92 (112) 178/96 (123) 144/85 (104) Pulse Ox 98 97 97 96 O2 Flow Rate 1.0 1.0 0 0 06/02/25 06/02/25 06/02/25 15:01 17:06 18:23 Temp 97.3 Pulse 82 93 85 Resp 20 20 17 B/P (MAP) 136/72 (93) 166/89 (114) 151/83 (105) Pulse Ox 98 95 94 O2 Flow Rate 0 0 0 Laboratory Tests Test 06/02/25 08:12 06/02/25 08:47 White Blood Count 6.2 Red Blood Count 4.43 Hemoglobin 12.8 Hematocrit 38.6 Mean Corpuscular Volume 87.1 Mean Corpuscular Hemoglobin 29.0 Mean Corpuscular Hemoglobin Concent 33.3 Red Cell Distribution Width 14.9 H Platelet Count 365 Mean Platelet Volume 7.1 L Neutrophils (%) (Auto) 73.1 Lymphocytes (%) (Auto) 17.2 L Monocytes (%) (Auto) 6.9 Eosinophils (%) (Auto) 1.7 Basophils (%) (Auto) 1.1 H Neutrophils # (Auto) 4.5 Lymphocytes # (Auto) 1.1 Monocytes # (Auto) 0.4 Eosinophils # (Auto) 0.1 Basophils # (Auto) 0.1 CBC Comment Sodium Level 142 Potassium Level 4.4 Chloride Level 105 Carbon Dioxide Level 29.9 Anion Gap 7 L Blood Urea Nitrogen 11 Creatinine 0.80 Estimated GFR/1.73 m2 68 BUN/Creatinine Ratio 13.8 Glucose Level 112 H Hemoglobin A1c 6.2 Calcium Level 8.6 Total Bilirubin 0.3 Aspartate Amino Transf (AST/SGOT) 26 Alanine Aminotransferase (ALT/SGPT) 29 Alkaline Phosphatase 55 Pro-B-Type Natriuretic Peptide 207 Total Protein 6.7 Albumin 3.4 Globulin 3.3 Albumin/Globulin Ratio 1.0 L Lipase 36 Chemistry Comments Urine Specimen Description Cln catch midstream Urine Color Straw Urine Clarity Clear Urine pH 8.0 Urine Specific [place] 1.010 Urine Protein Negative Urine Glucose (UA) Negative Urine Ketones Negative Urine Occult Blood Trace-intact Urine Nitrite Negative Urine Bilirubin Negative Urine Urobilinogen 0.2 Urine Leukocyte Esterase Negative Urine RBC 0-2 Urine WBC None seen Urine Squamous Epithelial Cells None seen Urine Bacteria Few Urine Mucus None seen Urine Culture Indicated Not ind Volume Urine Centrifuged 10 ml Urine Comment Medical Decision Making Additional information obtaine: N/A Findings 85 year old female as above with apparent COPD exacerbation and hypoxia. Workup also demonstrated dilated pancreatic duct as the patient reported some intermittent epigastric pain. Care transferred to hospitalist after consultation with toll bridge attendant recommended admission for MRCP and possible EGD in the morning. Heart Score: 4 Differential Dx:Considerations: Include: other Additional Infomation Ddx = hypoxic respiatory failure, COPD exacerbation, pneumonia, pancreatitis, CHF, PTX, PE Departure Disposition: HOME / SELF CARE / HOMELESS Impression: Primary Impression: COPD exacerbation Additional Impression: Hypoxia Condition: Stable Referrals: NO PRIMARY CARE PROVIDER (PCP) Prescriptions Atorvastatin Calcium (Atorvastatin Calcium) 20 Mg Tablet 40 MG PO DAILY for 30 Days, #60 TAB [facility] 06/05/25 Prednisone (Prednisone) 10 Mg Tablet 0 PO DAILY, #42 TAB Take 4 tabs daily x4 days, then 3 daily x4 days 2 daily x4 days 1 daily x4 days 1/2 daily x4 days then STOP [facility]: [facility], [facility] 06/05/25 Cefdinir* (Cefdinir*) 300 Mg Capsule 1 CAP PO Q12H for 4 Days, #8 CAP [facility]/05/25 Pantoprazole Sodium (PROTONIX tablet) 40 Mg Tablet.dr 40 MG PO DAILY for 30 Days, #30 TAB.SR Prov: [facility], [facility] 06/05/25 Education Educated: Patient, Family Educated regarding: diagnosis, treatment, prognosis, need for follow up Signature Scribe Signature: . Attestation: . KEMAR COOK MD Jun 02, 2025 17:40
[2025-06-02] MEDS ORDERED: magnesium sulf-water 2g/50mL 50 ML IV PRN (20:50)
[2025-06-02] MEDS ORDERED: magnesium Cl slow-release 64mg tablet PO PRN (20:50)
[2025-06-02] MEDS ORDERED: ondansetron/PF 4mg/2ml inj IV PRN (20:50)
[2025-06-02] MEDS ORDERED: HYDROcodone/acetaminophen 5mg/325mg tablet PO PRN (20:50)
[2025-06-02] MEDS ORDERED: potassium Cl 20 mEq SR tablet PO PRN ×2 (20:50)
[2025-06-02] MEDS ORDERED: mag hydrox/Alum hydrox/simeth 30ml oral suspension PO PRN (20:50)
[2025-06-02] MEDS ORDERED: magnesium sulf-water 4G/100mL 100 ML IV PRN (20:50)
[2025-06-02] MEDS ORDERED: magnesium hydroxide 30ml (MOM) UD suspension PO PRN (20:50)
[2025-06-02] MEDS ORDERED: potassium Cl 40MEQ/1/2NS 520ml 520 ML IV PRN (20:50)
--- NOTE | 2025-06-02 21:50 | HISTORY AND PHYSICAL-Residence ---
History & Physical Providers to CC Resident Creating Document: BRET ANAYA RES ~ History of Present Illness [facility] Reason for Admit\Complaint: Shortness of breath History of Present Illness This is an 85-year-old female with past medical history of COPD, AFib, hypertension, hypothyroidism, gastric ulcer presents to the ED with complaints of shortness of breath since this morning. Patient reports that she woke up from her sleep this morning, tried walking from her bed to the restroom, which she could not due to feeling short of breath. Patient normally uses inhalers at home, does not use oxygen. Patient reports that she had multiple hospital visits in the past due to similar complaints. However she denies any other complaints of cough, fevers, chills, chest pain, palpitations, abdominal pain, diarrhea, nausea, vomiting. Allergies: Coded Allergies: Beef Containing Products (Verified Adverse Reaction, Intermediate, EATING BEEF, PORK OR [place] CAUSES ARTHRITIS FLARE UP, 06/02/25) Milk Containing Products (Dairy) (Verified Adverse Reaction, Intermediate, abd pain, 06/02/25) Pork/Porcine Containing Products (Verified Adverse Reaction, Intermediate, EATING BEEF, PORK OR [place] CAUSES ARTHRITIS FLARE UP, 06/02/25) aspirin (Verified Adverse Reaction, Intermediate, DIARRHEA AND HEARTBURN, 06/02/25) sheep derived (ovine) (Verified Adverse Reaction, Intermediate, EATING BEEF, PORK OR [place] CAUSES ARTHRITIS FLARE UP, 06/02/25) Home Medications Home Medications Active Levothyroxine Sodium 100 Mcg Tablet 100 Mcg PO DAILY@07 Cordarone (Amiodarone HCl) 200 Mg Tablet 200 Mg PO DAILY Ventolin Hfa (Albuterol Sulfate) 90 Mcg Hfa.aer.ad 2 Puffs IH 5XD 30 Days Symbicort 80-4.5 Mcg Inhaler (Budesonide/Formoterol Fumarate) 80 Mcg-4.5 Mcg/Actuation Hfa.aer.ad 2 Puffs INH Q12H 30 Days Lisinopril 10 Mg Tablet 10 Mg PO DAILY 30 Days PROTONIX tablet (Pantoprazole Sodium) 40 Mg Tablet.dr 40 Mg PO BID Reported Multi Vitamin Daily (Multivitamin) 1 Each Tablet 1 Tab PO DAILY 30 Days Atenolol 50 Mg Tablet 0.5 Tab PO DAILY [place] 3-6-9 1,200 mg Softgel (Fish Oil/Borage/Flax/Om3,6,9#1) 1,200 Mg Capsule 1 Cap PO DAILY 30 Days Past Medical History Past Medical History COPD GERD Gastric ulcer Hypertension Chronic pancreatitis as per previous records. Atrial fibrillation -not on blood thinners Hypothyroidism Past Surgical History Surgical History Comment Tonsillectomy Appendectomy Ovarian cyst removal in 2022 Family History Family History: FH: tuberculosis MOTHER Past Social History Social History Comment patient lives at home with her son. Ambulates independently without assistance. 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 Denies illicit drug use. Denies alcohol use Smoking: Quit greater than 1 year Alcohol Use: Occasionally Drug Use: None Lives with: Family, Other Lives In: Home Occupation: retired ROS All Other Systems: Reviewed and Negative Exam Vitals: Vital Signs Date Time Temp Pulse Resp B/P (MAP) Pulse Ox O2 Delivery O2 Flow Rate FiO2 06/02/25 21:10 98.8 93 20 139/8 (51) 96 0 06/02/25 07:54 Nasal Cannula* 28 General: Elderly female, alert and oriented, not in acute distress. Head: Normocephalic with an atraumatic Eyes: Pupils- 3mm, reacting to light, conjunctiva- anicteric Nose and throat: No polyps, septum- normal, no mucosal ulcers Neck: Supple, no lymphadenopathy, no carotid bruit Respiratory: No use of accessory muscles of respiration. Mild wheezing present Cardiac: S1-S2 heard, rhythm regular Abdomen: non distended, no tenderness, no organomegaly, bowel sounds - heard Extremities: no clubbing, no pedal edema, no deformities, peripheral pulses - 2+ Skin: warm and dry, no rash, no purpura Neuro: No focal deficit, gross cranial nerve exam - normal Diagnostic Data Last Recorded Lab Results: 06/02/2581106/02/25811 Advance Care Planning Advanced Care plannin - 30 Minutes (DNR) Additional Plan Acute hypoxemic respiratory failure Secondary to Acute exacerbation of COPD WBC count normal, proBNP normal Patient does not use oxygen at home Currently requiring around 2 L of oxygen However she is hemodynamically stable Started the patient on DuoNebs q.4h p.r.n., albuterol q.2h p.r.n. Methylprednisolone 60 mg b.i.d. Incentive spirometry Nonspecific pancreatic duct dilation- Patient has a history of chronic pancreatitis. Patient denies any complaints of abdominal pain currently No symptoms of nausea vomiting AST ALT, total bilirubin , alkaline phosphatase normal Lipase normal CTA abdomen shows- Dilated main pancreatic duct at the level of the pancreatic head measuring 7 mm. MRCP ordered. Gastroenterology aware of the patient. Patient most likely will undergo EGD tomorrow. AFib Currently rate controlled Patient currently in sinus rhythm with normal rate Patient on amiodarone 200 mg home medication. Patient not on any blood thinners. Says she does not want to be on any. History of GERD History of gastric ulcer Started the patient on pantoprazole 40 mg day hypothyroidism Continued home medication levothyroxine Hypertension- Continuing home medication lisinopril 10 mg daily Disposition- patient will most likely undergo EGD tomorrow morning. Continue to monitor her. Code Status: DNR DVT Prophylaxis: SubQ heparin Lines/Tubes: PIV Nutrition: NPO Prognosis: Guarded Bret Anaya PGY-1 Date of Service: Jun 02, 2025 Billing Provider: DEREK FRAZIER MD, PREETHI, RES Jun 02, 2025 21:49
[2025-06-02] MEDS ORDERED: ipratropium/albuterol 3ml nebule NEB PRN (22:25)
[2025-06-02] MEDS ORDERED: albuterol 2.5 MG/3 ML nebule NEB PRN (23:00)
[2025-06-02] MEDS ORDERED: albuterol 2.5 MG/3 ML nebule NEB SCH (23:00)
[2025-06-02] MEDS ORDERED: CefTRIAXone/D5W-Rocephin 1gm 50 ML IV SCH (23:32)
[2025-06-02] MEDS ORDERED: azithromycin/NS 500mg/250ml 250 ML IV SCH (23:32)
[2025-06-03] VITALS (9 sets, daily range): BP systolic 94–176; BP diastolic 59–95; PULSE 70–99; RESP 14–20; TEMP 97.3–98; O2SAT 92–99
[2025-06-03 06:29] LABS: MEAN PLATELET VOLUME 7.5 FL (7.4-10.4); RED CELL DISTRIBUTION WIDTH 15.3 % (11.5-14.5)
[2025-06-03 06:47] LABS: CHOL/HDL RATIO 1.9 (0.00-4.99); CREATININE 0.86 MG/DL (0.40-0.90); LDL CHOLESTEROL 120 MG/DL (50-100); TOTAL CARBON DIOXIDE 30.6 MMOL/L (24-32); eCRCL 36 ML/MIN; eGFR 62 ML/MIN
[2025-06-03] MEDS: pantoprazole 40mg Tablet.DR PO SCH (07:14)
[2025-06-03] MEDS: heparin, porcine 5000 units/ml vial SQ SCH (07:14)
[2025-06-03] MEDS: levoTHYROXINE 100mcg tablet PO SCH (07:15)
[2025-06-03] MEDS: multivitamins, therapeutics tablet PO SCH ×2 (07:15→10:42)
[2025-06-03] MEDS: docusate sod 100mg capsule PO SCH (08:00)
[2025-06-03] MEDS: K and/or MAG REPLACEMENT MC SCH (08:00)
[2025-06-03] MEDS: hydrALAZINE 20mg/ml inj. IV PRN (10:43)
[2025-06-03] MEDS: CefTRIAXone/D5W-Rocephin 1gm 50 ML IV SCH (11:15)
--- NOTE | 2025-06-03 11:55 | CONSULTATION REPORT - RESIDENT ---
Consult Providers to CC Resident Creating Document: GAVINO GOMEZ RES History of Present Illness Reason for Admit\Complaint: Shortness of breath History of Present Illness This is a 85-year-old female patient with a past medical history of COPD, hypertension, GERD, paroxysmal AFib, hypothyroidism, who presented to the ER for increasing shortness of breath and productive cough. GI consult was initially requested for epigastric pain and possible weight loss. Today the patient is denying the epigastric pain and reports only occasional bloating after eating. She also denies weight loss, nausea, vomiting, hematochezia or melena. Last EGD and colonoscopy were approximately five years ago, without any abnormalities. No other GI symptoms reported. Allergies: Coded Allergies: Beef Containing Products (Verified Adverse Reaction, Intermediate, EATING BEEF, PORK OR [place] CAUSES ARTHRITIS FLARE UP, 06/02/25) Milk Containing Products (Dairy) (Verified Adverse Reaction, Intermediate, abd pain, 06/02/25) Pork/Porcine Containing Products (Verified Adverse Reaction, Intermediate, EATING BEEF, PORK OR [place] CAUSES ARTHRITIS FLARE UP, 06/02/25) aspirin (Verified Adverse Reaction, Intermediate, DIARRHEA AND HEARTBURN, 06/02/25) sheep derived (ovine) (Verified Adverse Reaction, Intermediate, EATING BEEF, PORK OR [place] CAUSES ARTHRITIS FLARE UP, 06/02/25) Home Medications Home Medications Active Levothyroxine Sodium 100 Mcg Tablet 100 Mcg PO DAILY@07 Cordarone (Amiodarone HCl) 200 Mg Tablet 200 Mg PO DAILY Ventolin Hfa (Albuterol Sulfate) 90 Mcg Hfa.aer.ad 2 Puffs IH 5XD 30 Days Symbicort 80-4.5 Mcg Inhaler (Budesonide/Formoterol Fumarate) 80 Mcg-4.5 Mcg/Actuation Hfa.aer.ad 2 Puffs INH Q12H 30 Days Lisinopril 10 Mg Tablet 10 Mg PO DAILY 30 Days PROTONIX tablet (Pantoprazole Sodium) 40 Mg Tablet.dr 40 Mg PO BID Reported Multi Vitamin Daily (Multivitamin) 1 Each Tablet 1 Tab PO DAILY 30 Days Atenolol 50 Mg Tablet 0.5 Tab PO DAILY [place] 3-6-9 1,200 mg Softgel (Fish Oil/Borage/Flax/Om3,6,9#1) 1,200 Mg Capsule 1 Cap PO DAILY 30 Days Past Medical History Past Medical History COPD Hypertension GERD Paroxysmal Atrial fibrillation Hypothyroidism Past Surgical History Surgical History Comment Tonsillectomy Appendectomy Ovarian cyst removal Family History Family History: FH: tuberculosis MOTHER Past Social History Social History Comment Quit smoking and alcohol more than 20 years ago Exam Vitals: Vital Signs Date Time Temp Pulse Resp B/P (MAP) Pulse Ox O2 Delivery O2 Flow Rate FiO2 06/03/25 10:43 95 06/03/25 08:19 20 98 Nasal Cannula* 2 28 06/03/25 06:00 98.0 159/78 (105) General: General: Awake and Alert, no acute distress. HEENT: Conjunctiva pink, Sclera clear, Mucus Membranes moist. Neck: Supple without masses and tenderness. Resp: Diminished air movement bilaterally with expiratory wheezing. Heart: Regular Rate and rhythm, normal S1 and S2 without murmur, rub or gallop. Abdomen: Soft, nondistended, nontender, normal bowel sounds, no guarding or rebound Extremities: No cyanosis,clubbing or edema. Skin: Warm and Dry. Diagnostic Data Last Recorded Lab Results: 06/03/25 0547 06/03/25 0300 Additional Plan Assessment/plan This is a 85-year-old female patient with a past medical history of COPD, hypertension, GERD, paroxysmal AFib, hypothyroidism, who presented to the ER for increasing shortness of breath and productive cough. GI consult was initially requested for epigastric pain and possible weight loss. Today the patient reports only abdominal bloating without pain or changes in bowel habits. No acute GI symptoms reported. Dyspepsia - no red flags reported Dilated main pancreatic duct - patient reports bloating without pain, weight loss or other red flags - CT abdomen: Colonic diverticulosis without acute diverticulitis. Dilated main pancreatic duct at the level of the pancreatic head measuring 7 mm. MRI and MRCP recommended for further evaluation to exclude an obstructing lesion. - no acute GI intervention recommended at this point. - follow-up on MRCP - follow-up outpatient Acute hypoxemic respiratory failure Acute COPD exacerbation Paroxysmal AFib Hypertension/hypothyroidism/hyperlipidemia - management per the primary team Patient was seen, examined and discussed with the attending physician Dr. Ace Date of Service: Jun 03, 2025 Billing Provider: ELENA SERRANO MD, LUCAS, RES Jun 03, 2025 11:55
[2025-06-03] MEDS: azithromycin/NS 500mg/250ml 250 ML IV SCH (12:04)
--- NOTE | 2025-06-03 18:14 | PROGRESS NOTE- Residence ---
Progress Note - Resident Providers to CC Resident Creating Document: BRET JACOBO RES ~ Antibiotic Timeout Antibiotic Ordered?: Yes Subjective Patient was seen and examined bedside. She reports shortness of breath on going to washroom. She is saturating well on 2 L oxygen nasal cannula. Shallow breath sounds with mild wheezing heard. She reports occasional abdominal bloating. She denies abdominal pain, nausea, vomiting, fever or chills, chest pain palpitations. No abdominal tenderness noted. Objective Vital Signs Date Time Temp Pulse Resp B/P (MAP) Pulse Ox O2 Delivery O2 Flow Rate FiO2 06/03/25 14:00 94/59 (71) 06/03/25 10:43 95 06/03/25 10:00 97.7 16 95 Nasal Cannula 1.0 06/03/25 08:19 28 Result Diagram: 06/03/25 0547 06/03/25 0300 Awake , alert, and oriented x4, patient is frail, resting comfortably in the bed, in no acute distress HEENT: Atraumatic, normocephalic, EOMI, anicteric sclera ; pink conjunctiva Neck: Trachea midline. Supple, full range of motion, no JVD Cardiac: Regular rhythm, regular rate with no murmurs all over the precordium. Respiratory: Shallow breath sounds bilaterally with mild wheezing, no tachypnea ,rub or rales, Chest wall is symmetric and without deformity. Gastrointestinal: Abdomen symmetric, non-distended, soft, non-tender, normal bowel sounds x4 quadrant, normoactive, no hepatosplenomegaly Musculoskeletal: No pedal edema, no cyanosis Neurological: Speech is clear, alert, and oriented x 4. No motor or sensory deficit, deep tendon reflexes normal, cerebellar intact. Cranial nerves II-XII intact. Skin: Warm and dry Coagulation Studies Laboratory Tests Test 06/03/25 13:01 D-Dimer 0.31 MG/L FEU (0-0.50) D-Dimer Comment Assessment Assessment 85-year-old female with history of COPD, AFib, hypertension, hypothyroidism admitted for COPD exacerbation and incidental finding of dilated pancreatic duct was found, patient will be needing MRCP. Plan Plan Acute on chronic hypoxemic respiratory failure 2/2 Acute exacerbation of COPD Shallow breath sounds with mild wheezing noted Patient does not use oxygen at home Patient is saturating well on 2 L nasal can WBC count normal Started IV Rocephin 1 g and IV azithromycin 500 mg-day 1 Continue Methylprednisolone 60 mg b.i.d. 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 Stewart, to follow up outpatient Nonspecific pancreatic duct dilation Patient denies any complaints of abdominal pain currently No symptoms of nausea, vomiting Liver enzymes are normal Lipase is normal CTA abdomen shows- Dilated main pancreatic duct at the level of the pancreatic head measuring 7 mm, gallbladder is unremarkable with no intrahepatic or extrahepatic biliary ductal dilatation Triglycerides are normal, patient is not an alcoholic Calcium is normal Consulted GI, and stated that no GI interventions needed at the moment MRCP pending Paroxysmal AFib, rate controlled Patient currently in sinus rhythm with normal rate Continued home medication amiodarone 200 mg home Patient also uses atenolol 25 mg at home, held it as blood pressure was soft Patient not on any blood thinners She has a history of hematochezia due to ascending colon ulcer 5 years ago, and stopped Eliquis at that time She does not want to be on blood thinners History of GERD History of gastric ulcer Continue pantoprazole 40 mg Hypothyroidism Continued home medication levothyroxine 100 mcg Monitor TSH Hypertension Continued home medication lisinopril 10 mg daily Patient also uses atenolol 25 mg at home, held in view of soft blood pressure Hyperlipidemia LDL is 120 Patient is not on a statin ASCVD score can not be calculated due to age Started atorvastatin 40 mg, continue on discharge and follow up outpatient Code status: DNR DVT prophylaxis: SubQ heparin GI prophylaxis: Pantoprazole 40 mg b.i.d. Pain management: Tylenol p.r.n. Diet/nutrition: Regular diet Prognosis: Guarded Disposition: Continue IV antibiotics, steroids, DuoNebs and incentive spirometry, awaiting MRCP, PT eval and DC plan Resident MD attestation: The patient note has been reviewed and supervised by senior residents PGY-2/ PGY-3. Patient was seen, examined and discussed with attending physician, Dr. Hannah Jacobo MD Internal Medicine resident, PGY-1 Date of Service: Jun 03, 2025 Billing Provider: RYLIE HANDY MD, PREETHI, RES Jun 03, 2025 18:13
[2025-06-04 05:51] LABS: MEAN PLATELET VOLUME 7.3 FL (7.4-10.4); RED CELL DISTRIBUTION WIDTH 15.1 % (11.5-14.5)
[2025-06-04 06:00] VITALS: BP 102/59; PULSE 73; RESP 20; TEMP 97.9; O2SAT 93
[2025-06-04 06:25] LABS: CREATININE 1.00 MG/DL (0.40-0.90); TOTAL CARBON DIOXIDE 28.6 MMOL/L (24-32); eCRCL 31 ML/MIN; eGFR 52 ML/MIN
[2025-06-04] MEDS: normal saline 1000ml 1,000 ML IV SCH (07:30)
[2025-06-04 10:00] VITALS: BP 125/64; PULSE 78; RESP 16; TEMP 98.4; O2SAT 98
--- NOTE | 2025-06-04 10:15 | PROGRESS NOTE- Residence ---
Progress Note - Resident Providers to CC Resident Creating Document: GAVINO GOMEZ RES ~ Antibiotic Timeout Antibiotic Ordered?: Yes Subjective Patient is seen and examined at the bedside. She reports improvement of the shortness of breath and productive cough. She is still reports abdominal bloating but denies epigastric pain, weight loss, nausea or vomiting. No new GI symptoms reported. Objective Vital Signs Date Time Temp Pulse Resp B/P (MAP) Pulse Ox O2 Delivery O2 Flow Rate FiO2 06/03/25 22:00 97.8 81 16 126/68 (87) 98 Nasal Cannula 1.5 06/03/25 20:00 21 Result Diagram: 06/04/25 0535 06/04/25 0535 General: Awake and Alert, no acute distress. HEENT: Conjunctiva pink, Sclera clear, Mucus Membranes moist. Neck: Supple without masses and tenderness. Resp: Diminished air movement bilaterally with expiratory wheezing. Heart: Regular Rate and rhythm, normal S1 and S2 without murmur, rub or gallop. Abdomen: Soft, nondistended, nontender, normal bowel sounds, no guarding or rebound Extremities: No cyanosis,clubbing or edema. Skin: Warm and Dry. Coagulation Studies Laboratory Tests Test 06/03/25 13:01 D-Dimer 0.31 MG/L FEU (0-0.50) D-Dimer Comment Plan Plan Assessment/plan This is a 85-year-old female patient with a past medical history of COPD, hypertension, GERD, paroxysmal AFib, hypothyroidism, who presented to the ER for increasing shortness of breath and productive cough. GI consult was initially requested for epigastric pain and possible weight loss, however the patient reported only abdominal bloating without pain or changes in bowel habits. No other GI symptoms since admission. Dyspepsia - no red flags reported Dilated main pancreatic duct - patient reports bloating without pain, weight loss or other red flags - CT abdomen: Colonic diverticulosis without acute diverticulitis. Dilated main pancreatic duct at the level of the pancreatic head measuring 7 mm. MRI and MRCP recommended for further evaluation to exclude an obstructing lesion. - no acute GI intervention recommended at this point. - pending MRCP - outpatient follow-up recommended Acute hypoxemic respiratory failure Acute COPD exacerbation Paroxysmal AFib Hypertension/medication-induced hyperthyroidism/hyperlipidemia - management per the primary team Patient was seen, examined and discussed with the attending physician Dr. Ace Date of Service: Jun 04, 2025 Billing Provider: ELENA SERRANO MD, LUCAS, RES Jun 04, 2025 10:15
[2025-06-04 10:21] VITALS: PULSE 95; RESP 20; O2SAT 89
--- NOTE | 2025-06-04 17:05 | PROGRESS NOTE- Residence ---
Progress Note - Resident Providers to CC Resident Creating Document: BRET JACOBO RES ~ Antibiotic Timeout Antibiotic Ordered?: Yes Subjective Patient was seen and examined bedside. She states that shortness of breath has been getting better, she is saturating well on 2 L oxygen nasal cannula. Shallow breath sounds with no wheezing heard today. She denies abdominal pain at the moment but states that she has been having occasional abdominal bloating. No abdominal tenderness noted. She denies any other medical complaints. Objective Vital Signs Date Time Temp Pulse Resp B/P (MAP) Pulse Ox O2 Delivery O2 Flow Rate FiO2 06/04/25 10:21 95 20 89 Nasal Cannula* 2 28 06/04/25 10:00 98.4 125/64 (84) Result Diagram: 06/04/25 0535 06/04/25 0535 Awake , alert, and oriented x4, patient is frail, resting comfortably in the bed, in no acute distress HEENT: Atraumatic, normocephalic, EOMI, anicteric sclera ; pink conjunctiva Neck: Trachea midline. Supple, full range of motion, no JVD Cardiac: Regular rhythm, regular rate with no murmurs all over the precordium. Respiratory: Shallow breath sounds bilaterally, no tachypnea , wheezing,rub or rales, Chest wall is symmetric and without deformity. Gastrointestinal: Abdomen symmetric, non-distended, soft, non-tender, normal bowel sounds x4 quadrant, normoactive, no hepatosplenomegaly Musculoskeletal: No pedal edema, no cyanosis Neurological: Speech is clear, alert, and oriented x 4. No motor or sensory deficit, deep tendon reflexes normal, cerebellar intact. Cranial nerves II-XII intact. Skin: Warm and dry Coagulation Studies Laboratory Tests Test 06/03/25 13:01 D-Dimer 0.31 MG/L FEU (0-0.50) D-Dimer Comment Assessment Assessment 85-year-old female with history of COPD, AFib, hypertension, hypothyroidism admitted for COPD exacerbation and incidental finding of dilated pancreatic duct was found, patient will be needing MRCP Plan Plan Acute on chronic hypoxemic respiratory failure 2/2 Acute exacerbation of COPD, improving Shallow breath sounds noted, no wheezing today Patient does not use oxygen at home Patient is saturating well on 2 L oxygen nasal cannula, we will try weaning her off WBC count normal Continue IV Rocephin 1 g and IV azithromycin 500 mg-day to Decreased Methylprednisolone to 40 mg b.i.d. Continue DuoNebs Incentive spirometry D-dimer is normal Patient does not have a embedded linux engineer She will get referral to follow up with embedded linux engineer, Dr. Rivera outpatient for COPD Nonspecific pancreatic duct dilation Patient denies any complaints of abdominal pain currently No symptoms of nausea, vomiting Liver enzymes are normal Lipase is normal CTA abdomen shows- Dilated main pancreatic duct at the level of the pancreatic head measuring 7 mm, gallbladder is unremarkable with no intrahepatic or extrahepatic biliary ductal dilatation Triglycerides are normal, patient is not an alcoholic Calcium is normal Consulted GI, Dr. Jean Baptiste and she stated that no GI interventions are required at the moment MRCP pending Paroxysmal AFib, rate controlled Lamont Vasc score 4 Patient currently in sinus rhythm with normal rate Continued home medication amiodarone 200 mg home Patient also uses atenolol 25 mg at home, held it as blood pressure was soft We will continue atenolol after blood pressure stabilizes Patient is not on any blood thinners She has a history of hematochezia due to ascending colon ulcer 5 years ago, and stopped Eliquis at that time She does not want to be on blood thinners History of GERD History of gastric ulcer Continue pantoprazole 40 mg Hypothyroidism Held home medication levothyroxine 100 mcg TSH is low and T4 is high Follow up outpatient after monitoring TSH Hypertension Continued home medication lisinopril 10 mg daily Patient also uses atenolol 25 mg at home, held in view of soft blood pressure We will continue atenolol after blood pressure stabilizes Hyperlipidemia LDL is 120 Patient is not on a statin ASCVD score can not be calculated due to age Continue atorvastatin 40 mg, continue on discharge and follow up outpatient Code status: DNR DVT prophylaxis: SubQ heparin GI prophylaxis: Pantoprazole 40 mg b.i.d. Pain management: Tylenol p.r.n. Diet/nutrition: Regular diet Prognosis: Guarded Disposition: Continue IV antibiotics, steroids, DuoNebs and incentive spirometry, awaiting MRCP, PT eval and DC plan Resident attestation: The patient note has been reviewed and supervised by senior residents PGY-2/ PGY-3. Patient was seen, examined and discussed with attending physician, Dr. Hannah Jacobo MD Internal Medicine resident, PGY-1 Date of Service: Jun 04, 2025 Billing Provider: RYLIE HANDY MD Common Visit Codes: [id number] INP/OBS CARE(HIGH) BRET JACOBO, RES Jun 04, 2025 17:05 MARY JANE WILLETT MD Jun 06, 2025 15:55
[2025-06-04 18:00] VITALS: BP 130/71; PULSE 85; RESP 16; TEMP 97.9; O2SAT 98
[2025-06-04] MEDS: methylPREDNISolone sod succ/PF 40mg inj. IV SCH (19:20)
[2025-06-04 21:12] VITALS: PULSE 87; RESP 16; O2SAT 98
[2025-06-04 22:00] VITALS: PULSE 78; RESP 17; TEMP 97.2; O2SAT 98
[2025-06-05 05:55] LABS: MEAN PLATELET VOLUME 7.9 FL (7.4-10.4); RED CELL DISTRIBUTION WIDTH 15.7 % (11.5-14.5)
[2025-06-05 06:00] VITALS: BP 117/67; PULSE 78; RESP 18; TEMP 97.8; O2SAT 98
[2025-06-05 06:13] LABS: CREATININE 0.81 MG/DL (0.40-0.90); TOTAL CARBON DIOXIDE 25.2 MMOL/L (24-32); eCRCL 39 ML/MIN; eGFR 67 ML/MIN
[2025-06-05 06:36] VITALS: BP 174/94
[2025-06-05 08:00] VITALS: RESP 18; O2SAT 98
[2025-06-05 10:00] VITALS: BP 174/92; PULSE 94; RESP 14; TEMP 97.8; O2SAT 98
[2025-06-05 10:16] VITALS: PULSE 84; RESP 16; O2SAT 94
[2025-06-05 11:13] VITALS: BP_SYST 183; PULSE 93
[2025-06-05] MEDS ORDERED: PANT-47 PO (12:30)
[2025-06-05] MEDS ORDERED: ATOR20TA66 PO ×2 (12:30→12:31)
[2025-06-05] MEDS ORDERED: CEFD300C3 PO (12:30)
[2025-06-05] MEDS ORDERED: PRED10TA23 PO (12:30)
--- NOTE | 2025-06-05 14:16 | DISCHARGE SUMMARY-Residence ---
Discharge Summary Providers to CC Resident Creating Document: DIETER [place], RES ~ Discharge Summary Admission Diagnosis: Shortness of breath Hospital Course DATE OF ADMISSION: June 02, 2025 DATE OF DISCHARGE: June 05, 2025 Discharge Diagnosis\Comment: Acute on chronic hypoxemic respiratory failure resolved 2/2 COPD with acute exacerbation Paroxysmal AFib, rate controlled Nonspecific pancreatic duct dilation History of GERD Hypothyroidism Hypertension Hyperlipidemia Operations\Procedures: None Consultants: Dr. Ita Rodriguez, meter record clerk Complications: None Condition on DC: Stable New Medications: Cefdinir* (Cefdinir*) 300 Mg Capsule 1 CAP PO Q12H for 4 Days, #8 CAP Prednisone (Prednisone) 10 Mg Tablet 0 PO DAILY, #42 TAB Take 4 tabs daily x4 days, then 3 daily x4 days 2 daily x4 days 1 daily x4 days 1/2 daily x4 days then STOP Atorvastatin Calcium (Atorvastatin Calcium) 20 Mg Tablet 40 MG PO DAILY for 30 Days, #60 TAB Changed Medications: Pantoprazole Sodium (PROTONIX tablet) 40 Mg Tablet.dr 40 MG PO DAILY for 30 Days, #30 TAB.SR (Changed from: BID; 60) Continued Medications: Albuterol Sulfate (Ventolin Hfa) 90 Mcg Hfa.aer.ad 2 PUFFS IH 5XD for shortness of breath for 30 Days, #1 INHALER Amiodarone Hcl (Cordarone) 200 Mg Tablet 200 MG PO DAILY, #30 TAB Atenolol (Atenolol) 50 Mg Tablet 0.5 TAB PO DAILY Budesonide/Formoterol Fumarate (Symbicort 80-4.5 Mcg Inhaler) 80 Mcg-4.5 Mcg/Actuation Hfa.aer.ad 2 PUFFS INH Q12H for 30 Days, #2 INHALER 0 Refills Fish Oil/Borage/Flax/Om3,6,9#1 ([place] 3-6-9 1,200 mg Softgel) 1,200 Mg Capsule 1 CAP PO DAILY for 30 Days, #30 CAP Lisinopril (Lisinopril) 10 Mg Tablet 10 MG PO DAILY for 30 Days, #30 TAB Multivitamin (Multi Vitamin Daily) 1 Each Tablet 1 TAB PO DAILY for 30 Days, #30 TAB 0 Refills Discharge Summary: History of present illness: This is an 85-year-old female with past medical history of COPD, AFib, hypertension, hypothyroidism, gastric ulcer presents to the ED with complaints of shortness of breath since the morning of day of admission. Patient reported that she woke up from her sleep this morning, tried walking from her bed to the restroom, which she could not due to feeling short of breath. Patient normally uses inhalers at home, does not use oxygen. Patient reported that she had [facility] hospital visits in the past due to similar complaints. However she denied any other complaints of cough, fevers, chills, chest pain, palpitations, abdominal pain, diarrhea, nausea, vomiting. Course in the hospital: She was saturating well on 2 L O2 NC. Chest X ray showed no cardiopulmonary disease. WBC was normal. She was hemodynamically stable. She was started on IV Ceftriaxone, azithromycin, methylprednisone 60 mg bid, duonebs and incentive spirometry. Abdomen CT showed dilated main pancreatic duct at the level of the pancreatic head measuring 7 mm. Patient had no abdominal tenderness. Liver funct ion tests were normal. GI was consulted and stated that no interventions are required at the moment. She will need an MRCP outpatient and follow up appointment with PCP and meter record clerk. She was continued on amiodarone 200 mg for paroxysmal Afib. she was in sinus rhythm, and she is not on any blood thinners due to past hematochezia around 5 years ago from ascending colon ulcer. She was continued on pantoprazole 40 mg, levothyroxine and lisinopril 10 mg. She received 3 days of IV antibiotics. She was discharged home with cefdinir 300 mg bid for 4 days and tapering dose of Prednisone. She was given referral to team foreman, Dr. Rivera. LDL is 120 and patient is not on a statin. She was started on atorvastatin 40 mg. Patient TSH is low and T4 is high, held thyroid medication and advised to repeat thyroid profile in 4 weeks and follow up with PCP.Care plan discussed patient who is awake alert, all questions answered and all concerns addressed appropriately. All labs, diagnostic workup and discharge plan discussed with patient and in detail before discharge. Discharge instructions provided to the patient. Patient needs follow-up with primary care physician after hospital discharge in 1week. Imaging: Chest x-ray: 06/02/2025 No acute cardiopulmonary disease. CT abdomen/pelvis: 06/02/2025 No acute abdominal or pelvic findings. Colonic diverticulosis without acute diverticulitis. Dilated main pancreatic duct at the level of the pancreatic head measuring 7 mm. MRI and MRCP recommended for further evaluation to exclude an obstructing lesion. Subcentimeter enhancing mass in the uterus, likely a fibroid. Discharge instructions: FOLLOW UP WITH PCP in a WEEK and GET MRCP appointment in view of incidental CTA abdomen shows- Dilated main pancreatic duct at the level of the pancreatic head measuring 7 mm. Follow up with Dr. Rivera, the pulmonolgist, for COPD. outpatient office: [address] [place] [address]. . Repeat Thyroid profile after 4 weeks and follow with pcp for thyoid medication. Take Cefadinir 300 mg twice daily for 4 days. Take Predisone Tablets as prescribed. Continue Symbicort 2 puffs in the morning and 2 puffs in the evening. Physical exam at discharge: Awake , alert, and oriented x4, patient is frail, resting comfortably in the bed, in no acute distress HEENT: Atraumatic, normocephalic, EOMI, anicteric sclera ; pink conjunctiva Neck: Trachea midline. Supple, full range of motion, no JVD Cardiac: Regular rhythm, regular rate with no murmurs all over the precordium. Respiratory: Shallow breath sounds bilaterally, no tachypnea , wheezing,rub or rales, Chest wall is symmetric and without deformity. Gastrointestinal: Abdomen symmetric, non-distended, soft, non-tender, normal bowel sounds x4 quadrant, normoactive, no hepatosplenomegaly Musculoskeletal: No pedal edema, no cyanosis Neurological: Speech is clear, alert, and oriented x 4. No motor or sensory deficit, deep tendon reflexes normal, cerebellar intact. Cranial nerves II-XII intact. Skin: Warm and dry Vital Signs Date Time Temp Pulse Resp B/P (MAP) Pulse Ox O2 Delivery O2 Flow Rate FiO2 06/05/25 11:13 93 06/05/25 10:16 16 94 Room Air* 0 21 06/05/25 06:36 174/94 (120) 06/05/25 06:00 97.8 Laboratory Tests Test 06/04/25 05:35 06/05/25 05:06 06/05/25 05:16 White Blood Count 8.0 X10'3 11.2 X10'3 Red Blood Count 4.33 X10'6 4.26 X10'6 Hemoglobin 12.5 g/dl 12.1 g/dl Hematocrit 37.5 % 37.5 % Mean Corpuscular Volume 86.6 FL 88.0 FL Mean Corpuscular Hemoglobin 29.0 PG 28.4 PG Mean Corpuscular Hemoglobin Concent 33.5 g/dL 32.3 g/dL Red Cell Distribution Width 15.1 % 15.7 % Platelet Count 350 X10'3 312 X10'3 Mean Platelet Volume 7.3 FL 7.9 FL Neutrophils (%) (Auto) 83.7 % 84.8 % Lymphocytes (%) (Auto) 13.1 % 9.9 % Monocytes (%) (Auto) 3.0 % 5.2 % Eosinophils (%) (Auto) 0 % 0 % Basophils (%) (Auto) 0.2 % 0.1 % Neutrophils # (Auto) 6.7 X10'3 9.5 X10'3 Lymphocytes # (Auto) 1.0 X10'3 1.1 X10'3 Monocytes # (Auto) 0.2 X10'3 0.6 X10'3 Eosinophils # (Auto) 0.0 X10'3 0.0 X10'3 Basophils # (Auto) 0.0 X10'3 0.0 X10'3 CBC Comment Sodium Level 141 MMOL/L 141 MMOL/L Potassium Level 4.1 MMOL/L 4.4 MMOL/L Chloride Level 106 MMOL/L 109 MMOL/L Carbon Dioxide Level 28.6 MMOL/L 25.2 MMOL/L Anion Gap 6 7 Blood Urea Nitrogen 26 MG/DL 27 MG/DL Creatinine 1.00 MG/DL 0.81 MG/DL Estimated GFR/1.73 m2 52 ML/MIN 67 ML/MIN BUN/Creatinine Ratio 26.0 33.3 Glucose Level 143 MG/DL 125 MG/DL Calcium Level 8.7 MG/DL 8.4 MG/DL Magnesium Level 2.2 MG/DL 2.3 MG/DL Total Bilirubin 0.3 MG/DL 0.3 MG/DL Aspartate Amino Transf (AST/SGOT) 27 U/L 29 U/L Alanine Aminotransferase (ALT/SGPT) 23 U/L 21 U/L Alkaline Phosphatase 48 IU/L 45 IU/L Total Protein 6.0 G/DL 5.9 G/DL Albumin 3.0 G/DL 2.9 G/DL Globulin 3.0 G/DL 3.0 G/DL Albumin/Globulin Ratio 1.0 1.0 Thyroid Stimulating Hormone (TSH) 0.21 ulU/ml Free Thyroxine 1.88 NG/DL Chemistry Comments *Problems/Diagnosis: (1) Acute hypoxemic respiratory failure (2) COPD with acute exacerbation (3) Paroxysmal A-fib Total Time Spent on D/C: > 30 Minutes Date of Service: Jun 05, 2025 Billing Provider: MARY JANE WILLETT MD, SUNIL KUMAR, RES Jun 05, 2025 14:16
== END 2025-06-05 14:15 | disposition home or self-care (01) | DRG 189 ==
LOC: ER 07:26 → ED HOLD 19:59 → EDBEDREQSVC 06-03 01:28 → ORTHO 4S 06-03 01:59
PROVIDERS: ADMIT Internal Medicine Pulmonary Disease; ATTEND Family Medicine
PROC: BW211ZZ Computerized Tomography (CT Scan) of Abdomen and Pelvis using Low Osmolar Contrast (ICD-10-PCS; principal; 2025-06-02)
DX: J96.01 Acute respiratory failure with hypoxia (principal); Z66 Do not resuscitate; K86.89 Other specified diseases of pancreas; J44.1 Chronic obstructive pulmonary disease with (acute) exacerbation; I10 Essential (primary) hypertension; E03.9 Hypothyroidism, unspecified; E78.00 Pure hypercholesterolemia, unspecified; I48.0 Paroxysmal atrial fibrillation; K21.9 Gastro-esophageal reflux disease without esophagitis; Z90.49 Acquired absence of other specified parts of digestive tract; Z87.891 Personal history of nicotine dependence; Z88.8 Allergy status to other drugs, medicaments and biological substances; Z91.0110 Allergy to milk products, unspecified; Z91.014 Allergy to mammalian meats; Z79.899 Other long term (current) drug therapy; Z86.73 Personal history of transient ischemic attack (TIA), and cerebral infarction without residual deficits
CPT/HCPCS: 36415; 71045; 74177; 80053; 80061; 81001; 83036; 83690; 83735; 83880; 84439; 84443; 85025; 85379; 87040; 87081; 93005; 94760; 97116; 97161; 97530; 99285; A4615; G0378; J0360; J0456; J0696; J1644; J2919; J7030; Q9967